=== PATIENT | male | born 1945 | race Caucasian/White ===

== ENCOUNTER 2022-10-28 19:47 | Inpatient (IN) ==
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
[2022-10-28 20:05] LABS: POC Calcium, Ionized 1.09 (1.16-1.32); POC Creatinine 1.2 (0.6-1.2); POC Potassium 3.6 (3.3-5.1)
[2022-10-28 20:47] LABS: Basophils # (Auto) 0.04 K/mcL (0.00-0.30); Basophils % (Auto) 0.3 % (0.0-2.0); Eosinophils # (Auto) 0.01 K/mcL (0.00-0.70); Eosinophils % (Auto) 0.1 % (0.0-7.0); Hematocrit 38.6 % (40.1-51.0); Hemoglobin 12.5 g/dL (13.7-17.5); Lymphocytes # (Auto) 0.85 K/mcL (1.50-4.80); Mean Cell Volume 84.3 fL (80.0-100.0); Mean Corpuscular HGB Conc 32.4 g/dL (31.0-36.0); Monocytes # (Auto) 0.77 K/mcL (0.10-0.90); Monocytes % (Auto) 6.4 % (1.0-12.0); Neutrophils % (Auto) 85.8 % (38.0-78.0); Platelet Count 220 K/mcL (140-440); RBC 4.58 M/mcL (4.63-6.08); Red Cell Distribution Width 13.7 % (11.5-14.5); WBC 12.1 K/mcL (4.5-11.0)
[2022-10-28] MEDS ORDERED: 0.9 % SODIUM CHLORIDE 1,000 ML IV ONE (21:08)
[2022-10-28] MEDS ORDERED: DILTIAZEM 25 MG/5 ML VIAL IV ONE (21:56)
[2022-10-28] MEDS ORDERED: cefTRIAXone 1 GM VIAL IV ONE (22:28)
[2022-10-28 22:42] LABS: Appearance,Urine CLOUDY (Clear); Bacteria,Urine MANY /hpf (0); Bilirubin,Urine NEGATIVE (Negative); Color,Urine YELLOW; Culture Indicated,Urine yes; Glucose,Urine (UA) 500 mg/dL (Negative); Ketones,Urine NEGATIVE (Negative); Leukocyte Esterase,Urine SMALL /uL (Negative); Mucus,Urine MANY /hpf; Nitrate,Urine Positive (Negative); PH,Urine 5.5 (5.0-9.0); Protein,Urine 100 mg/dL (Negative); Specific Gravity,Urine 1.025 (1.000-1.035); Urine Blood LARGE ery/mcL (Negative); Urine RBC > 182 /hpf (0-1); Urine Squamous Epithelial Cell 0 /hpf (0-4); Urine WBC > 182 /hpf (0-4); Urobilinogen,Urine Normal
[2022-10-28 22:54] LABS: POC INR 1.5 (0.8-1.2); POC Pro Time 17.9 (11.9-14.5)
[2022-10-28 23:35] LABS: Digoxin 0.5 ng/mL
[2022-10-29] MEDS ORDERED: 0.9 % SODIUM CHLORIDE 1,000 ML IV ONE (01:32)
[2022-10-29] MEDS: 0.9 % SODIUM CHLORIDE 1,000 ML IV SCH ×5 (02:13→14:26)
[2022-10-29] MEDS ORDERED: ACETAMINOPHEN 325 MG TABLET PO ONE ×2 (02:49→02:52)
[2022-10-29] MEDS ORDERED: traMADol 50 MG TABLET PO ONE ×2 (02:49→02:52)
--- NOTE | 2022-10-29 06:05 | Cat Scan Report ---
INDICATION: trauma. Fall COMPARISON: Previous examination dated 04/13/2022 TECHNIQUE: Axial noncontrast-enhanced images through the brain. Sagittally and coronally reformatted images. FINDINGS: Examination was initially interpreted by [facility] Cerebral hemispheres:Negative. No intra-axial abnormality. No intra-axial hematoma. No localized mass effect.This There is cerebral atrophy with ventricular enlargement. There is white matter abnormality consistent with small vessel ischemic change in this 77-year-old patient. Brainstem and cerebellum:No intra-axial abnormality Extra-axial:No acute hemorrhage. No subdural or epidural hematoma. No subarachnoid hemorrhage. Basilar cisterns are normal Calvarial:No calvarial fracture. No lytic lesion Temporal bones are negative. No destructive lesions Soft tissue, orbits, sinuses:Orbits and visualized facial soft tissues and paranasal sinuses are negative IMPRESSION: 1. Cerebral atrophy and white matter abnormality consistent with small vessel ischemic change 2. No acute abnormality. No intracranial hemorrhage The exam was performed using radiation dose optimization techniques including, but not limited to, automated exposure control, adjustment of the mA and/or kV according to patient size and use of iterative reconstruction technique. Interpreted and Authenticated by: Ramakrishna Degroot 10/29/22
--- NOTE | 2022-10-29 06:09 | Cat Scan Report ---
INDICATION: trauma. Fall COMPARISON: Previous examinations dated 02/29/2020, 04/13/2022 TECHNIQUE: Axial thin section images through the cervical spine. Sagittally and coronally reformatted images. The exam was performed using radiation dose optimization techniques including, but not limited to, automated exposure control, adjustment of the mA and/or kV according to patient size and use of iterative reconstruction technique. FINDINGS: Examination was initially interpreted by [facility] Vertebral bodies, spinous processes:No vertebral body or spinous process fracture. No acute abnormality. Alignment is anatomic without anterolisthesis Normal odontoid process. No fracture. Occipital condyles and C1 are negative. No atlantoaxial subluxation. Facets:No perched or locked facet. No facet complex fracture. Disc spaces:Moderate to severe degenerative disc narrowing at C5-6 Temporal bones:Negative. No basilar skull fracture Cervical soft tissues:Negative. No prevertebral soft tissue swelling. No focal soft tissue mass or acute abnormality Lung apices:No pneumothorax. No pulmonary contusion. IMPRESSION: 1. Degenerative disc disease 2. No cervical spine fracture. No acute posttraumatic abnormality Interpreted and Authenticated by: Ramakrishna Degroot 10/29/22
--- NOTE | 2022-10-29 06:55 | XRay Report ---
INDICATION: pain. Fall TECHNIQUE: AP pelvis COMPARISON: Previous examinations dated 04/13/2022, 12/24/2021 FINDINGS: No pelvic fracture. Superior and inferior pubic rami appear intact. Sacrum is negative. No detectable fracture. Sacroiliac joints unremarkable. Hips are negative and bilaterally symmetric. No hip fracture identified. IMPRESSION: Negative AP pelvis Interpreted and Authenticated by: Ramakrishna Degroot 10/29/22
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
[2022-10-29] MEDS ORDERED: traMADol 50 MG TABLET PO PRN (09:19)
[2022-10-29] MEDS ORDERED: IPRATROPIUM/ALBUTEROL 3 ML AMPUL.NEB NEB PRN (09:29)
[2022-10-29] MEDS ORDERED: DEXTROSE 31 GM ORAL.SUSP PO PRN (09:29)
[2022-10-29] MEDS ORDERED: ACETAMINOPHEN 325 MG TABLET PO PRN (09:29)
[2022-10-29] MEDS ORDERED: morphine 4 MG/ML VIAL IV PRN (09:29)
[2022-10-29] MEDS ORDERED: DEXTROSE 50% 50 ML VIAL IV PRN (09:29)
[2022-10-29] MEDS ORDERED: ONDANSETRON 4 MG/2 ML VIAL IV PRN (09:29)
[2022-10-29] MEDS ORDERED: cefTRIAXone 1 GM in DEXTROSE 5% IN WATER 50 ML IV SCH (09:29)
[2022-10-29] MEDS ORDERED: traZODone HCL 50 MG TABLET PO PRN (09:29)
[2022-10-29] MEDS: TAMSULOSIN 0.4 MG CAPSULE PO SCH (10:11)
[2022-10-29] MEDS: cefTRIAXone 1 GM VIAL IV SCH (10:49)
[2022-10-29] MEDS: INSULIN LISPRO 1 UNIT/0.01 ML UNIT SQ SCH ×3 (12:13→20:48)
[2022-10-29] MEDS: MIDODRINE 5 MG TABLET PO SCH ×2 (12:55→16:57)
[2022-10-29] MEDS: 0.9 % SODIUM CHLORIDE 10 ML SYRINGE IV SCH ×2 (13:42→22:26)
--- NOTE | 2022-10-29 13:52 | EKG ---
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
[2022-10-29] MEDS: DIGOXIN 125 MCG TABLET PO SCH (14:41)
[2022-10-29] MEDS: APIXABAN 5 MG TABLET PO SCH (20:22)
[2022-10-29] MEDS: DOCUSATE SODIUM 100 MG CAPSULE PO SCH (20:22)
[2022-10-29] MEDS: MAGNESIUM OXIDE 400 MG TABLET PO SCH (20:23)
[2022-10-29] MEDS: SENNOSIDES 1 TABLET PO SCH (20:23)
[2022-10-29] MEDS: METOPROLOL SUCCINATE 50 MG TAB.XL.24H PO SCH (20:23)
[2022-10-29] MEDS: INSULIN GLARGINE, HUMAN 1 UNIT/0.01 ML SQ SCH (20:25)
[2022-10-29] MEDS: NEO/POLYMYX B SULF/DEXAMETH 1 RIBBON OINT.OPHTH OU SCH (22:27)
[2022-10-30] MEDS: 0.9 % SODIUM CHLORIDE 1,000 ML IV SCH ×2 (00:16→08:09)
[2022-10-30] MEDS: 0.9 % SODIUM CHLORIDE 10 ML SYRINGE IV SCH ×3 (06:15→21:14)
[2022-10-30 06:47] LABS: Basophils # (Auto) 0.05 K/mcL (0.00-0.30); Basophils % (Auto) 0.7 % (0.0-2.0); Eosinophils # (Auto) 0.16 K/mcL (0.00-0.70); Eosinophils % (Auto) 2.2 % (0.0-7.0); Hematocrit 31.1 % (40.1-51.0); Lymphocytes # (Auto) 1.34 K/mcL (1.50-4.80); Lymphocytes % (Auto) 18.5 % (15.5-49.0); Mean Cell Volume 84.5 fL (80.0-100.0); Mean Corpuscular HGB Conc 32.2 g/dL (31.0-36.0); Mean Platelet Volume 11.2 fL (8.8-12.5); Monocytes # (Auto) 0.53 K/mcL (0.10-0.90); Monocytes % (Auto) 7.3 % (1.0-12.0); Neutrophils % (Auto) 70.9 % (38.0-78.0); Platelet Count 147 K/mcL (140-440); RBC 3.68 M/mcL (4.63-6.08); Red Cell Distribution Width 13.4 % (11.5-14.5); WBC 7.2 K/mcL (4.5-11.0)
[2022-10-30 07:14] LABS: Blood Urea Nitrogen 15 mg/dL (8-23); Calcium 8.4 mg/dL (8.6-10.4); Carbon Dioxide 24 mmol/L (22-30); Chloride 105 mmol/L (96-108); Glomerular Filtration Rate 81; Glucose 121 mg/dL (70-105)
[2022-10-30 07:21] LABS: ALT/SGPT 12 U/L (<40); AST/SGOT 18 U/L (<40); Alkaline Phosphatase 96 U/L (39-117); Bilirubin,Direct < 0.2 mg/dL (0-0.3); Bilirubin,Total 0.4 mg/dL (0.1-1.0); Globulin 2.9 gm/dL (2.2-3.7); Lactate Dehydrogenase 247 U/L (135-225); Phosphorous 1.7 mg/dL (2.5-4.5); Triglycerides 99 mg/dL (<150); Uric Acid 4.4 mg/dL (2.5-8.0)
[2022-10-30 07:44] LABS: Estimated Average Glucose(eAG) 169 mg/dL; Hemoglobin A1C 7.5 % Hgb (4.0-6.0)
[2022-10-30] MEDS: ASPIRIN 81 MG TAB.CHEW PO SCH (08:07)
[2022-10-30] MEDS: EZETIMIBE 10 MG TABLET PO SCH (08:07)
[2022-10-30] MEDS: MULTIVIT,THER IRON,CA,FA & MIN 1 TABLET PO SCH (08:07)
[2022-10-30] MEDS: DOCUSATE SODIUM 100 MG CAPSULE PO SCH ×2 (08:08→21:18)
[2022-10-30] MEDS: APIXABAN 5 MG TABLET PO SCH ×2 (08:08→21:13)
[2022-10-30] MEDS: INSULIN LISPRO 1 UNIT/0.01 ML UNIT SQ SCH ×4 (08:08→22:36)
[2022-10-30] MEDS: MAGNESIUM OXIDE 400 MG TABLET PO SCH ×2 (08:08→21:13)
[2022-10-30] MEDS: TAMSULOSIN 0.4 MG CAPSULE PO SCH (08:08)
[2022-10-30] MEDS: MIDODRINE 5 MG TABLET PO SCH ×3 (08:08→16:14)
[2022-10-30] MEDS: NEO/POLYMYX B SULF/DEXAMETH 1 RIBBON OINT.OPHTH OU SCH ×2 (08:09→21:13)
[2022-10-30] MEDS: BISACODYL 5 MG TABLET PO SCH (08:09)
[2022-10-30] MEDS: cefTRIAXone 1 GM VIAL IV SCH (08:12)
[2022-10-30] MEDS: GEMFIBROZIL 600 MG TABLET PO SCH (08:26)
[2022-10-30] MEDS ORDERED: NIACIN 1000 MG PO SCH (09:00)
--- NOTE | 2022-10-30 09:07 | Internal Med Progress Note ---
SUBJECTIVE Subjective Patient information: Note initiated : 10/30/22 at 9:04 am Service Date, if different from initiated Date: [] Patient: Ramakrishna Burgos a 77 y/o M admitted on 10/29/22 for weakness, fall. Chief Complaint: [] Interval history: Mr. Burgos is a 77 year old M history of CAD status post CABG x3, BPH status post TURP, type 2 diabetes mellitus, essential hypertensions, mixed dyslipidemia, proximal atrial fibrillation's, presenting with general weakness. He stated that he has been feeling weak since his CABG 2 years ago but it has been progressively worsened especially over the past week. Yesterday he is partner fell and unable to continue to take care of him so he decided to come to the ED for evaluation and for treatment and potential placement needs. He denies any fever or chills or diaphoresis. He denies any dysuria or change in urinary frequency or urgency. No GI upset such as nausea vomiting. Vital signs in the presentation significant for elevated heart rate tachycardia heart rate up to the 1 teens beats per minute atrial fibrillation's. Labs significant for leukocytosis WBC 12.1. Lactic acid 1.2. Urine analysis suggesting the presence of urinary infections. CT and x-ray did not reveal any bony fractures or joint dislocations. Admission request discomfort urinary tract infections with associated clinical sepsis. 2: Fever Tmax 38.2 overnight. Blood culture: Gram positive cocci; Urine culture: E coli. WBC 12.1-->7.2. Patient denies any subjective fever chills or diaphoresis. He is coming of headache and pelvic pain secondary to his recent falls. He has poor appetite. He has increasing body strength. Continue IV fluid and Rocephin for urinary tract infections. Since the blood culture is growing completely different bacteria than the urine culture, it is likely contamination's. We will continue to monitor. Pending physical therapy evaluation and treatment for placement planning. Constitutional Vitals: Vital Signs Temp Pulse Resp BP Pulse Ox O2 Del Method O2 Flow Rate 36.9 C 65 20 144/68 96 Room Air 3 10/30/22 08:00 10/30/22 08:00 10/30/22 08:00 10/30/22 08:00 10/30/22 08:00 10/30/22 00:02 10/29/22 08:01 Period Temp Pulse Resp BP Sys/Davis Pulse Ox O2 Del Method O2 Flow Rate Last 24 Hr 36.9 C-38.2 C 64-90 18-29 119-144/50-83 89-96 Room Air-Room Air Intake and Output 10/29/22 10/30/22 10/30/22 19:59 03:59 11:59 Intake Total 2119 651 3538 Output Total 400 275 290 Balance 4684 777 4169 Weight 91.399 kg Intake & Output: Intake & Output 10/29/22 10/30/22 10/30/22 19:59 03:59 11:59 Intake Total 6884 053 0650 Output Total 400 275 290 Balance 3011 073 3284 Weight 91.399 kg Intake: IV 538 983 788 Sodium Chloride 0.9% 1,000 ml @ 538 983 788 100 mls/hr IV .Q10H [facility] Rx#: [id number] Oral 1000 800 Output: Urine Catheter Amount 400 275 290 Other: Meal Dinner Percent of Meal Consumed 25% Urine Appearance Clear Sediment Cloudy Uretheral (Bethea) Cloudy Urine Color Dark Yellow Light Patria Dark Yellow Uretheral ([place]ethea) Yellow Urine Odor Normal Strong Uretheral (Bethea) Normal Head Head exam: Present atraumatic and normal inspection Eye Eye exam: Present normal appearance ENT ENT exam: Present mucous membranes moist, normal exam and normal external ear exam Neck Neck exam: Present normal inspection Respiratory Respiratory exam: Present normal respiratory exam Cardiovascular Cardiovascular exam: Present normal rate and rhythm GI/Abdominal GI/Abdominal exam: Present normal bowel sounds Back Exam Back exam: Present normal inspection Neurological Exam Neurological exam: Present alert and oriented X3 Skin Skin exam: Present intact and warm OBJ DATA Labs 10/30/22 05:22 10/30/22 05:22 Labs: Abnormal Lab Results 10/30/22 10/30/22 10/29/22 05:22 05:22 09:50 WBC RBC 3.68 L Hgb 10.0 L Hct 31.1 L POC Hct Neut % (Auto) Lymph % (Auto) Lymph # (Auto) 1.34 L Absolute Neutrophils POC PT POC INR D-Dimer POC VBG pO2 POC VBG HCO3 POC VBG Total CO2 POC Venous O2 Sat POC VBG Base Excess POC BUN Glucose 121 H POC Glucose Hemoglobin A1c 7.5 H Calcium 8.4 L POC WB Ioniz Calcium Phosphorus 1.7 L Lactate Dehydrogenase 247 H Albumin 3.0 L Procalcitonin 0.31 H Urine Appearance Urine Protein Urine Glucose (UA) Urine Occult Blood Urine Nitrate Ur Leukocyte Esterase Urine RBC Urine WBC Urine Bacteria Urine Mucus 10/28/22 10/28/22 10/28/22 22:50 21:47 20:11 WBC 12.1 H RBC 4.58 L Hgb 12.5 L Hct 38.6 L POC Hct Neut % (Auto) 85.8 H Lymph % (Auto) 7.0 L Lymph # (Auto) 0.85 L Absolute Neutrophils 10.39 H POC PT 17.9 H POC INR 1.5 H D-Dimer POC VBG pO2 POC VBG HCO3 POC VBG Total CO2 POC Venous O2 Sat POC VBG Base Excess POC BUN Glucose POC Glucose Hemoglobin A1c Calcium POC WB Ioniz Calcium Phosphorus Lactate Dehydrogenase Albumin Procalcitonin Urine Appearance Cloudy A Urine Protein 100 A Urine Glucose (UA) 500 A Urine Occult Blood Large A Urine Nitrate Positive A Ur Leukocyte Esterase Small A Urine RBC > 182 H Urine WBC > 182 H Urine Bacteria Many A Urine Mucus Many A 10/28/22 10/28/22 10/28/22 20:01 19:58 19:56 WBC RBC Hgb Hct POC Hct 38.0 L Neut % (Auto) Lymph % (Auto) Lymph # (Auto) Absolute Neutrophils POC PT POC INR D-Dimer 0.65 H POC VBG pO2 22 L POC VBG HCO3 29.0 H POC VBG Total CO2 30.0 H POC Venous O2 Sat 37.0 L POC VBG Base Excess 4.0 H* POC BUN 21 H Glucose POC Glucose 244 H Hemoglobin A1c Calcium POC WB Ioniz Calcium 1.09 L Phosphorus Lactate Dehydrogenase Albumin Procalcitonin Urine Appearance Urine Protein Urine Glucose (UA) Urine Occult Blood Urine Nitrate Ur Leukocyte Esterase Urine RBC Urine WBC Urine Bacteria Urine Mucus Meds: Medications Acetaminophen (Acetaminophen 325 Mg Tablet) 650 mg PO Q6HP PRN; Protocol PRN Reason: Per Pain Protocol/Fever > 101 Last Admin: 10/29/22 11:52 Dose: 650 mg Albuterol/Ipratropium (Ipratropium/Albuterol 3 Ml Ampul.Neb) 3 ml NEB Q4HRT PRN PRN Reason: Wheezing Apixaban (Apixaban 5 Mg Tablet) 5 mg PO BID [facility] Last Admin: 02/02/23 08:08 Dose: 5 mg Aspirin (Aspirin 81 Mg Tab.Chew) 81 mg PO DAILY [facility] Last Admin: 10/30/22 08:07 Dose: 81 mg Bisacodyl (Bisacodyl 5 Mg Tablet) 5 mg PO DAILY [facility] Last Admin: 10/30/22 08:09 Dose: Not Given Ceftriaxone Sodium (Ceftriaxone 1 Gm Vial) 1 gm IV Q24H [facility] Last Admin: 10/30/22 08:12 Dose: 1 gm Dextrose (Dextrose 50% 50 Ml Vial) 0 ml IV UD PRN PRN Reason: Per Sliding Scale Diagnostic Test (Pha) (Accu-Chek 1 Each Strip) 1 each FS ACHS [facility] Last Admin: 10/30/22 08:08 Dose: 1 each Digoxin (Digoxin 125 Mcg Tablet) 125 mcg PO DAILY@1400 [facility] Last Admin: 10/29/22 14:41 Dose: 125 mcg Docusate Sodium (Docusate Sodium 100 Mg Capsule) 100 mg PO BID [facility] Last Admin: 10/30/22 08:08 Dose: 100 mg Ezetimibe (Ezetimibe 10 Mg Tablet) 10 mg PO DAILY [facility] Last Admin: 10/30/22 08:07 Dose: 10 mg Gemfibrozil (Gemfibrozil 600 Mg Tablet) 600 mg PO QAMAC [facility] Last Admin: 10/30/22 08:26 Dose: 600 mg Glucose (Dextrose 31 Gm Oral.Susp) 15 gm PO PRN PRN PRN Reason: Hypoglycemia Sodium Chloride (Sodium Chloride 0.9%) 1,000 mls @ 100 mls/hr IV .Q10H [facility] Last Admin: 10/30/22 08:09 Dose: 100 mls/hr Insulin Glargine (Insulin Glargine, Human 1 Unit/0.01 Ml) 5 unit SQ [facility] Last Admin: 10/29/22 20:25 Dose: 5 units Insulin Human Lispro (Insulin Lispro 1 Unit/0.01 Ml Unit) 0 unit SQ [facility]; Protocol Last Admin: 10/30/22 08:08 Dose: Not Given Iron Carb/Multivit/[place]/Folic Acid (Multivit,Ther Iron,Ca,Fa & Min 1 Tablet) 1 tab PO DAILY [facility] Last Admin: 10/30/22 08:07 Dose: 1 tab Magnesium Oxide (Magnesium Oxide 400 Mg Tablet) 400 mg PO BID [facility] Last Admin: 10/30/22 08:08 Dose: 400 mg Metoprolol Succinate (Metoprolol Succinate 50 Mg Tab.Xl.24h) 25 mg PO HS [facility] Last Admin: 10/29/22 20:23 Dose: 25 mg Midodrine (Midodrine 5 Mg Tablet) 10 mg PO TID@0800,1200,1700 [facility] Last Admin: 10/30/22 08:08 Dose: Not Given Morphine Sulfate (Morphine 4 Mg/Ml Vial) 2 mg IV Q4HP PRN; Protocol PRN Reason: Per Pain Protocol Neomycin/Polymyxin/Dexamethasone (Jonah/Polymyx B Sulf/Dexameth 1 Ribbon Oint.Ophth) 1 ribbon OU BID [facility] Last Admin: 10/30/22 08:09 Dose: Not Given Ondansetron HCl (Ondansetron 4 Mg/2 Ml Vial) 4 mg IV Q6HP PRN PRN Reason: Nausea And Vomiting Senna (Sennosides 1 Tablet) 2 tab PO HS [facility] Last Admin: 10/29/22 20:23 Dose: 2 tab Sodium Chloride (0.9 % Sodium Chloride 10 Ml Syringe) 10 ml IV Q8 [facility] Last Admin: 10/30/22 06:15 Dose: Not Given Tamsulosin HCl (Tamsulosin 0.4 Mg Capsule) 0.4 mg PO DAILY [facility] Last Admin: 10/30/22 08:08 Dose: 0.4 mg Tramadol HCl (Tramadol 50 Mg Tablet) 50 mg PO TIDP PRN PRN Reason: Pain Trazodone HCl (Trazodone Hcl 50 Mg Tablet) 25 mg PO HSP PRN PRN Reason: Insomnia A/P Assessment and plan (1) UTI (urinary tract infection): Status: Chronic (2) Type 2 diabetes mellitus: Status: Chronic (3) Hypertension: Status: Chronic (4) Atherosclerotic heart disease of [place] coronary artery with other forms of angina pectoris: Status: Chronic (5) Paroxysmal atrial fibrillation: Status: Chronic (6) Benign prostatic hyperplasia with urinary obstruction: Status: Chronic (7) Anemia, normocytic normochromic: Status: Acute (8) Sepsis: Status: Acute Narrative A/P Narrative: Assessment and Plans: 1. UTI with clinical sepsis: Inpatient med surg telemetry Serial lactic acid 1.2 Procalcitonin level 0.31 Blood culture, gram positive cocci Urine culture, E coli cbc w/ auto diff in the morning to trend WBC NS@100cc/hr Rocephin Physical therapy evaluation and treatment 2. Paroxysmal atrial fibrillation: Currently NSR Digoxin Toprol XL Eliquis 3. h/o CAD s/p CABGX3: Aspirin Toprol XL Ezetimibe Gemfibrozil 4. h/o essential HTN: Midodrine to make room in blood pressure in order for patient to tolerate Toprol XL for paroxysmal atrial fibrillation 5. T2DM: HgA1c 7.5 Hold oral hypoglycemics Lantus 5 unit HS Insulin Lispro SSI AC HS Accu Check AC HS Hypoglycemia protocol Diabetic diet 6. Anemia, normocytic normochromic: cbc w/ auto diff in the morning to trend H/H 7. BPH s/p TURP: Flomax 8. Gram positive cocci bacteremia: DDx: skin contamination Repeat blood culture 2/3 cbc w/ auto diff in the morning to trend Currently on Rocephin GI ppx: not currently indicated DVT ppx: Eliquis Code status: Full Prognosis: Stable Disposition: inpatient med surg tele; PT Time Spent With Patient Time: Total time spent is greater than 50% in coordination of care (as documented) at patient's floor/unit and/or counseling patient: Subsequent: Total time with patient: 35 - 49 minutes QUALITY VTE Deep Vein Thrombosis/Pulmonary Embolism Present on Admission: No
--- NOTE | 2022-10-30 14:08 | Internal Med Progress Note ---
SUBJECTIVE Subjective Patient information: Note initiated : 10/30/22 at 2:04 pm Service Date, if different from initiated Date: [] Patient: Ramakrishna Burgos a 77 y/o M admitted on 10/29/22 for weakness, fall. Chief Complaint: [] Interval history: Mr. Burgos is a 77 year old M history of CAD status post CABG x3, BPH status post TURP, type 2 diabetes mellitus, essential hypertensions, mixed dyslipidemia, proximal atrial fibrillation's, presenting with general weakness. He stated that he has been feeling weak since his CABG 2 years ago but it has been progressively worsened especially over the past week. Yesterday he is partner fell and unable to continue to take care of him so he decided to come to the ED for evaluation and for treatment and potential placement needs. He denies any fever or chills or diaphoresis. He denies any dysuria or change in urinary frequency or urgency. No GI upset such as nausea vomiting. Vital signs in the presentation significant for elevated heart rate tachycardia heart rate up to the 1 teens beats per minute atrial fibrillation's. Labs significant for leukocytosis WBC 12.1. Lactic acid 1.2. Urine analysis suggesting the presence of urinary infections. CT and x-ray did not reveal any bony fractures or joint dislocations. Admission request discomfort urinary tract infections with associated clinical sepsis. 2: Fever Tmax 38.2 overnight. Blood culture: Gram positive cocci; Urine culture: E coli. WBC 12.1-->7.2. Patient denies any subjective fever chills or diaphoresis. He is coming of headache and pelvic pain secondary to his recent falls. He has poor appetite. He has increasing body strength. Continue IV fluid and Rocephin for urinary tract infections. Since the blood culture is growing completely different bacteria than the urine culture, it is likely contamination's. We will continue to monitor. Pending physical therapy evaluation and treatment for placement planning. Constitutional Vitals: Vital Signs Temp Pulse Resp BP Pulse Ox O2 Del Method O2 Flow Rate 98.6 F 84 14 138/61 96 Room Air 97 10/30/22 11:28 10/30/22 11:28 10/30/22 11:28 10/30/22 11:28 10/30/22 08:00 10/30/22 11:28 10/30/22 11:28 Period Temp Pulse Resp BP Sys/Davis Pulse Ox O2 Del Method O2 Flow Rate Last 24 Hr 98.5 F-100.8 F 64-84 14-29 119-144/50-83 89-96 Room Air-Room Air 97 Intake and Output 10/30/22 10/30/22 10/30/22 03:59 11:59 19:59 Intake Total 983 1588 Output Total 275 290 Balance 708 1298 Weight 91.399 kg Intake & Output: Intake & Output 10/30/22 10/30/22 10/30/22 03:59 11:59 19:59 Intake Total 983 1588 Output Total 275 290 Balance 708 1298 Weight 91.399 kg Intake: IV 983 788 Sodium Chloride 0.9% 1,000 ml @ 983 788 100 mls/hr IV .Q10H [facility] Rx#: [id number] Oral 800 Output: Urine Catheter Amount 275 290 Other: Urine Appearance Sediment Cloudy Uretheral (Bethea) Cloudy Clear Urine Color Light Patria Dark Yellow Uretheral (Bethea) Yellow Yellow Urine Odor Strong Uretheral (Bethea) Normal Normal Exam: General: Alert, Awake, No acute Distress Eyes/N/T: EOMI, Head/Neck: neck supple, CV: RRR, No murmurs, Pulm: Clear b/l, no wheezing/rhonchi/rales Abd: soft, nontender, +BS x4 Ext: no clubbing/cyanosis/edema Neuro: Alert, no focal deficits, moves all extremities, Skin: warm/dry OBJ DATA Labs 10/30/22 05:22 10/30/22 05:22 Labs: Abnormal Lab Results 10/30/22 10/30/22 10/29/22 05:22 05:22 09:50 WBC RBC 3.68 L Hgb 10.0 L Hct 31.1 L POC Hct Neut % (Auto) Lymph % (Auto) Lymph # (Auto) 1.34 L Absolute Neutrophils POC PT POC INR D-Dimer POC VBG pO2 POC VBG HCO3 POC VBG Total CO2 POC Venous O2 Sat POC VBG Base Excess POC BUN Glucose 121 H POC Glucose Hemoglobin A1c 7.5 H Calcium 8.4 L POC WB Ioniz Calcium Phosphorus 1.7 L Lactate Dehydrogenase 247 H Albumin 3.0 L Procalcitonin 0.31 H Urine Appearance Urine Protein Urine Glucose (UA) Urine Occult Blood Urine Nitrate Ur Leukocyte Esterase Urine RBC Urine WBC Urine Bacteria Urine Mucus 10/28/22 10/28/22 10/28/22 22:50 21:47 20:11 WBC 12.1 H RBC 4.58 L Hgb 12.5 L Hct 38.6 L POC Hct Neut % (Auto) 85.8 H Lymph % (Auto) 7.0 L Lymph # (Auto) 0.85 L Absolute Neutrophils 10.39 H POC PT 17.9 H POC INR 1.5 H D-Dimer POC VBG pO2 POC VBG HCO3 POC VBG Total CO2 POC Venous O2 Sat POC VBG Base Excess POC BUN Glucose POC Glucose Hemoglobin A1c Calcium POC WB Ioniz Calcium Phosphorus Lactate Dehydrogenase Albumin Procalcitonin Urine Appearance Cloudy A Urine Protein 100 A Urine Glucose (UA) 500 A Urine Occult Blood Large A Urine Nitrate Positive A Ur Leukocyte Esterase Small A Urine RBC > 182 H Urine WBC > 182 H Urine Bacteria Many A Urine Mucus Many A 10/28/22 10/28/22 10/28/22 20:01 19:58 19:56 WBC RBC Hgb Hct POC Hct 38.0 L Neut % (Auto) Lymph % (Auto) Lymph # (Auto) Absolute Neutrophils POC PT POC INR D-Dimer 0.65 H POC VBG pO2 22 L POC VBG HCO3 29.0 H POC VBG Total CO2 30.0 H POC Venous O2 Sat 37.0 L POC VBG Base Excess 4.0 H* POC BUN 21 H Glucose POC Glucose 244 H Hemoglobin A1c Calcium POC WB Ioniz Calcium 1.09 L Phosphorus Lactate Dehydrogenase Albumin Procalcitonin Urine Appearance Urine Protein Urine Glucose (UA) Urine Occult Blood Urine Nitrate Ur Leukocyte Esterase Urine RBC Urine WBC Urine Bacteria Urine Mucus Meds: Medications Acetaminophen (Acetaminophen 325 Mg Tablet) 650 mg PO Q6HP PRN; Protocol PRN Reason: Per Pain Protocol/Fever > 101 Last Admin: 10/29/22 11:52 Dose: 650 mg Albuterol/Ipratropium (Ipratropium/Albuterol 3 Ml Ampul.Neb) 3 ml NEB Q4HRT PRN PRN Reason: Wheezing Apixaban (Apixaban 5 Mg Tablet) 5 mg PO BID [facility] Last Admin: 10/30/22 08:08 Dose: 5 mg Aspirin (Aspirin 81 Mg Tab.Chew) 81 mg PO DAILY [facility] Last Admin: 10/30/22 08:07 Dose: 81 mg Bisacodyl (Bisacodyl 5 Mg Tablet) 5 mg PO DAILY [facility] Last Admin: 10/30/22 08:09 Dose: Not Given Ceftriaxone Sodium (Ceftriaxone 1 Gm Vial) 1 gm IV Q24H [facility] Last Admin: 10/30/22 08:12 Dose: 1 gm Dextrose (Dextrose 50% 50 Ml Vial) 0 ml IV UD PRN PRN Reason: Per Sliding Scale Diagnostic Test (Pha) (Accu-Chek 1 Each Strip) 1 each FS [facility] Last Admin: 10/30/22 12:25 Dose: 1 each Digoxin (Digoxin 125 Mcg Tablet) 125 mcg PO DAILY@1400 [facility] Last Admin: 10/29/22 14:41 Dose: 125 mcg Docusate Sodium (Docusate Sodium 100 Mg Capsule) 100 mg PO BID [facility] Last Admin: 10/30/22 08:08 Dose: 100 mg Ezetimibe (Ezetimibe 10 Mg Tablet) 10 mg PO DAILY [facility] Last Admin: 10/30/22 08:07 Dose: 10 mg Gemfibrozil (Gemfibrozil 600 Mg Tablet) 600 mg PO QAMAC [facility] Last Admin: 10/30/22 08:26 Dose: 600 mg Glucose (Dextrose 31 Gm Oral.Susp) 15 gm PO PRN PRN PRN Reason: Hypoglycemia Sodium Chloride (Sodium Chloride 0.9%) 1,000 mls @ 100 mls/hr IV .Q10H [facility] Last Admin: 10/30/22 08:09 Dose: 100 mls/hr Insulin Glargine (Insulin Glargine, Human 1 Unit/0.01 Ml) 5 unit SQ [facility] Last Admin: 10/29/22 20:25 Dose: 5 units Insulin Human Lispro (Insulin Lispro 1 Unit/0.01 Ml Unit) 0 unit SQ [facility]; Protocol Last Admin: 10/30/22 12:25 Dose: 4 units Iron Carb/Multivit/[place]/Folic Acid (Multivit,Ther Iron,Ca,Fa & Min 1 Tablet) 1 tab PO DAILY [facility] Last Admin: 10/30/22 08:07 Dose: 1 tab Magnesium Oxide (Magnesium Oxide 400 Mg Tablet) 400 mg PO BID [facility] Last Admin: 10/30/22 08:08 Dose: 400 mg Metoprolol Succinate (Metoprolol Succinate 50 Mg Tab.Xl.24h) 25 mg PO [facility] Last Admin: 10/29/22 20:23 Dose: 25 mg Midodrine (Midodrine 5 Mg Tablet) 10 mg PO TID@0800,1200,1700 [facility] Last Admin: 10/30/22 12:20 Dose: Not Given Morphine Sulfate (Morphine 4 Mg/Ml Vial) 2 mg IV Q4HP PRN; Protocol PRN Reason: Per Pain Protocol Neomycin/Polymyxin/Dexamethasone (Jonah/Polymyx B Sulf/Dexameth 1 Ribbon Oint.Ophth) 1 ribbon OU BID [facility] Last Admin: 10/30/22 08:09 Dose: Not Given Ondansetron HCl (Ondansetron 4 Mg/2 Ml Vial) 4 mg IV Q6HP PRN PRN Reason: Nausea And Vomiting Senna (Sennosides 1 Tablet) 2 tab PO [facility] Last Admin: 10/29/22 20:23 Dose: 2 tab Sodium Chloride (0.9 % Sodium Chloride 10 Ml Syringe) 10 ml IV Q8 [facility] Last Admin: 10/30/22 12:25 Dose: Not Given Tamsulosin HCl (Tamsulosin 0.4 Mg Capsule) 0.4 mg PO DAILY [facility] Last Admin: 10/30/22 08:08 Dose: 0.4 mg Tramadol HCl (Tramadol 50 Mg Tablet) 50 mg PO TIDP PRN PRN Reason: Pain Trazodone HCl (Trazodone Hcl 50 Mg Tablet) 25 mg PO HSP PRN PRN Reason: Insomnia A/P Narrative A/P Narrative: Assessment and Plans: *UTI(E.coli/Klebsiella) w/Sepsis: -Procalcitonin level 0.31 -cbc w/ auto diff in the morning to trend WBC -Rocephin *Bacteremia(GPC 2/4 bottles): -Repeat blood culture -cbc w/ auto diff in the morning to trend *Paroxysmal atrial fibrillation: Currently NSR -cont home Digoxin ,Toprol XL ,Eliquis *h/o CAD s/p CABGX3: -cont home Aspirin , Toprol XL , Ezetimibe/Gemfibrozil *T2DM: -HgA1c 7.5 -Hold oral hypoglycemics, Lantus 5 unit HS, SSI -Hypoglycemia protocol, Diabetic diet *Anemia, normocytic normochromic: -cbc w/ auto diff in the morning to trend H/H *BPH s/p TURP: Flomax *Hypophosphatemia: Replace as needed trend *Generalized weakness/deconditioning:Physical therapy evaluation and treatment *ppx: Eliquis Code status: Atm Mechanic Spent With Patient Time: Total time spent is greater than 50% in coordination of care (as documented) at patient's floor/unit and/or counseling patient: QUALITY VTE Deep Vein Thrombosis/Pulmonary Embolism Present on Admission: No
[2022-10-30] MEDS ORDERED: NEUTRA PHOS 1 PACKET PO ONE (14:12)
[2022-10-30] MEDS ORDERED: PHOSPHORUS 250 MG TABLET PO ONE (14:12)
[2022-10-30] MEDS: DIGOXIN 125 MCG TABLET PO SCH (14:13)
[2022-10-30] MEDS: SENNOSIDES 1 TABLET PO SCH (21:13)
[2022-10-30] MEDS: METOPROLOL SUCCINATE 50 MG TAB.XL.24H PO SCH (21:17)
[2022-10-30] MEDS: INSULIN GLARGINE, HUMAN 1 UNIT/0.01 ML SQ SCH (22:38)
[2022-10-31] MEDS: 0.9 % SODIUM CHLORIDE 10 ML SYRINGE IV SCH ×3 (04:28→22:46)
[2022-10-31] MEDS: GEMFIBROZIL 600 MG TABLET PO SCH (07:20)
[2022-10-31] MEDS: INSULIN LISPRO 1 UNIT/0.01 ML UNIT SQ SCH ×4 (07:44→22:44)
[2022-10-31] MEDS: MIDODRINE 5 MG TABLET PO SCH ×3 (07:48→16:54)
--- NOTE | 2022-10-31 08:21 | Internal Med Progress Note ---
SUBJECTIVE Subjective Patient information: Note initiated : 10/31/22 at 8:19 am Service Date, if different from initiated Date: [] Patient: Ramakrishna Burgos a 77 y/o M admitted on 10/29/22 for weakness, fall. Chief Complaint: [] Interval history: Mr. Burgos is a 77 year old M history of CAD status post CABG x3, BPH status post TURP, type 2 diabetes mellitus, essential hypertensions, mixed dyslipidemia, proximal atrial fibrillation's, presenting with general weakness. He stated that he has been feeling weak since his CABG 2 years ago but it has been progressively worsened especially over the past week. Yesterday he is partner fell and unable to continue to take care of him so he decided to come to the ED for evaluation and for treatment and potential placement needs. He denies any fever or chills or diaphoresis. He denies any dysuria or change in urinary frequency or urgency. No GI upset such as nausea vomiting. Vital signs in the presentation significant for elevated heart rate tachycardia heart rate up to the 1 teens beats per minute atrial fibrillation's. Labs significant for leukocytosis WBC 12.1. Lactic acid 1.2. Urine analysis suggesting the presence of urinary infections. CT and x-ray did not reveal any bony fractures or joint dislocations. Admission request discomfort urinary tract infections with associated clinical sepsis. 2/2: Fever Tmax 38.2 overnight. Blood culture: Gram positive cocci; Urine culture: E coli. WBC 12.1-->7.2. Patient denies any subjective fever chills or diaphoresis. He is coming of headache and pelvic pain secondary to his recent falls. He has poor appetite. He has increasing body strength. Continue IV fluid and Rocephin for urinary tract infections. Since the blood culture is growing completely different bacteria than the urine culture, it is likely contamination's. We will continue to monitor. Pending physical therapy evaluation and treatment for placement planning. 2/3 Afebrile. Leukocytosis resolved. Hypophosphatemia. Replace and trend. Procalcitonin improving. Patient feels constipated. Review of Systems: denies headache/fever/chills/nausea/vomiting/chest or abdominal pain/cough/dyspnea/diarrhea. Otherwise see above. Constitutional Vitals: Vital Signs Temp Pulse Resp BP Pulse Ox O2 Del Method O2 Flow Rate 98.7 F 76 16 153/60 94 Room Air 97 10/31/22 07:48 10/31/22 07:48 10/31/22 07:48 10/31/22 07:48 10/31/22 07:48 10/31/22 07:48 10/30/22 11:28 Period Temp Pulse Resp BP Sys/Davis Pulse Ox O2 Del Method O2 Flow Rate Last 24 Hr 97.2 F-99.5 F 64-84 14-20 138-155/57-74 92-99 Room Air-Room r 97 Intake and Output 10/30/22 10/31/22 10/31/22 19:59 03:59 11:59 Intake Total 420 1480 Output Total 750 1500 Balance -330 -20 Weight 91.399 kg 91.399 kg Intake & Output: Intake & Output 10/30/22 10/31/22 10/31/22 19:59 03:59 11:59 Intake Total 420 1480 Output Total 750 1500 Balance -330 -20 Weight 91.399 kg 91.399 kg Intake: IV 1000 Sodium Chloride 0.9% 1,000 ml @ 1000 100 mls/hr IV .Q10H [facility] Rx#: [id number] Oral 420 480 Output: Urine Catheter Amount 1500 Void Amount 750 Other: Meal Lunch snack Percent of Meal Consumed 75% 50 Feeding Ability Independent Independent Urine Appearance Clear Sediment Sediment Uretheral (Bethea) Sediment Sediment Urine Color Yellow Pale Uretheral (Bethea) Yellow Urine Odor Normal Normal Uretheral (Bethea) Normal Exam: General: Alert, Awake, No acute Distress Eyes/N/T: EOMI, Head/Neck: neck supple, CV: RRR, No murmurs, Pulm: Clear b/l, no wheezing/rhonchi/rales Abd: soft, nontender, +BS x4 Ext: no clubbing/cyanosis/edema Neuro: Alert, no focal deficits, moves all extremities, Skin: warm/dry OBJ DATA Labs 10/30/22 05:22 10/30/22 05:22 Labs: Abnormal Lab Results 10/30/22 10/30/22 10/29/22 05:22 05:22 09:50 WBC RBC 3.68 L Hgb 10.0 L Hct 31.1 L POC Hct Neut % (Auto) Lymph % (Auto) Lymph # (Auto) 1.34 L Absolute Neutrophils POC PT POC INR D-Dimer POC VBG pO2 POC VBG HCO3 POC VBG Total CO2 POC Venous O2 Sat POC VBG Base Excess POC BUN Glucose 121 H POC Glucose Hemoglobin A1c 7.5 H Calcium 8.4 L POC WB Ioniz Calcium Phosphorus 1.7 L Lactate Dehydrogenase 247 H Albumin 3.0 L Procalcitonin 0.31 H Urine Appearance Urine Protein Urine Glucose (UA) Urine Occult Blood Urine Nitrate Ur Leukocyte Esterase Urine RBC Urine WBC Urine Bacteria Urine Mucus 10/28/22 10/28/22 10/28/22 22:50 21:47 20:11 WBC 12.1 H RBC 4.58 L Hgb 12.5 L Hct 38.6 L POC Hct Neut % (Auto) 85.8 H Lymph % (Auto) 7.0 L Lymph # (Auto) 0.85 L Absolute Neutrophils 10.39 H POC PT 17.9 H POC INR 1.5 H D-Dimer POC VBG pO2 POC VBG HCO3 POC VBG Total CO2 POC Venous O2 Sat POC VBG Base Excess POC BUN Glucose POC Glucose Hemoglobin A1c Calcium POC WB Ioniz Calcium Phosphorus Lactate Dehydrogenase Albumin Procalcitonin Urine Appearance Cloudy A Urine Protein 100 A Urine Glucose (UA) 500 A Urine Occult Blood Large A Urine Nitrate Positive A Ur Leukocyte Esterase Small A Urine RBC > 182 H Urine WBC > 182 H Urine Bacteria Many A Urine Mucus Many A 10/28/22 10/28/22 10/28/22 20:01 19:58 19:56 WBC RBC Hgb Hct POC Hct 38.0 L Neut % (Auto) Lymph % (Auto) Lymph # (Auto) Absolute Neutrophils POC PT POC INR D-Dimer 0.65 H POC VBG pO2 22 L POC VBG HCO3 29.0 H POC VBG Total CO2 30.0 H POC Venous O2 Sat 37.0 L POC VBG Base Excess 4.0 H* POC BUN 21 H Glucose POC Glucose 244 H Hemoglobin A1c Calcium POC WB Ioniz Calcium 1.09 L Phosphorus Lactate Dehydrogenase Albumin Procalcitonin Urine Appearance Urine Protein Urine Glucose (UA) Urine Occult Blood Urine Nitrate Ur Leukocyte Esterase Urine RBC Urine WBC Urine Bacteria Urine Mucus Meds: Medications Acetaminophen (Acetaminophen 325 Mg Tablet) 650 mg PO Q6HP PRN; Protocol PRN Reason: Per Pain Protocol/Fever > 101 Last Admin: 10/29/22 11:52 Dose: 650 mg Albuterol/Ipratropium (Ipratropium/Albuterol 3 Ml Ampul.Neb) 3 ml NEB Q4HRT PRN PRN Reason: Wheezing Apixaban (Apixaban 5 Mg Tablet) 5 mg PO BID [facility] Last Admin: 10/30/22 21:13 Dose: 5 mg Aspirin (Aspirin 81 Mg Tab.Chew) 81 mg PO DAILY [facility] Last Admin: 10/30/22 08:07 Dose: 81 mg Bisacodyl (Bisacodyl 5 Mg Tablet) 5 mg PO DAILY [facility] Last Admin: 10/30/22 08:09 Dose: Not Given Ceftriaxone Sodium (Ceftriaxone 1 Gm Vial) 1 gm IV Q24H [facility] Last Admin: 10/30/22 08:12 Dose: 1 gm Dextrose (Dextrose 50% 50 Ml Vial) 0 ml IV UD PRN PRN Reason: Per Sliding Scale Diagnostic Test (Pha) (Accu-Chek 1 Each Strip) 1 each FS [facility] Last Admin: 10/31/22 07:21 Dose: 1 each Digoxin (Digoxin 125 Mcg Tablet) 125 mcg PO DAILY@1400 [facility] Last Admin: 10/30/22 14:13 Dose: 125 mcg Docusate Sodium (Docusate Sodium 100 Mg Capsule) 100 mg PO BID [facility] Last Admin: 10/30/22 21:18 Dose: 100 mg Ezetimibe (Ezetimibe 10 Mg Tablet) 10 mg PO DAILY [facility] Last Admin: 10/30/22 08:07 Dose: 10 mg Gemfibrozil (Gemfibrozil 600 Mg Tablet) 600 mg PO QAMAC [facility] Last Admin: 10/31/22 07:20 Dose: 600 mg Glucose (Dextrose 31 Gm Oral.Susp) 15 gm PO PRN PRN PRN Reason: Hypoglycemia Insulin Glargine (Insulin Glargine, Human 1 Unit/0.01 Ml) 5 unit SQ [facility] Last Admin: 10/30/22 22:38 Dose: 5 units Insulin Human Lispro (Insulin Lispro 1 Unit/0.01 Ml Unit) 0 unit SQ [facility]; Protocol Last Admin: 10/31/22 07:44 Dose: 2 units Iron Carb/Multivit/Enigma/Folic Acid (Multivit,Ther Iron,Ca,Fa & Min 1 Tablet) 1 tab PO DAILY [facility] Last Admin: 10/30/22 08:07 Dose: 1 tab Magnesium Oxide (Magnesium Oxide 400 Mg Tablet) 400 mg PO BID [facility] Last Admin: 10/30/22 21:13 Dose: 400 mg Metoprolol Succinate (Metoprolol Succinate 50 Mg Tab.Xl.24h) 25 mg PO HS [facility] Last Admin: 10/30/22 21:17 Dose: 25 mg Midodrine (Midodrine 5 Mg Tablet) 10 mg PO TID@0800,1200,1700 [facility] Last Admin: 10/31/22 07:48 Dose: Not Given Morphine Sulfate (Morphine 4 Mg/Ml Vial) 2 mg IV Q4HP PRN; Protocol PRN Reason: Per Pain Protocol Neomycin/Polymyxin/Dexamethasone (Jonah/Polymyx B Sulf/Dexameth 1 Ribbon Oint.Ophth) 1 ribbon OU BID [facility] Last Admin: 10/30/22 21:13 Dose: Not Given Ondansetron HCl (Ondansetron 4 Mg/2 Ml Vial) 4 mg IV Q6HP PRN PRN Reason: Nausea And Vomiting Senna (Sennosides 1 Tablet) 2 tab PO HS [facility] Last Admin: 10/30/22 21:13 Dose: 2 tab Sodium Chloride (0.9 % Sodium Chloride 10 Ml Syringe) 10 ml IV Q8 [facility] Last Admin: 10/31/22 04:28 Dose: 10 ml Tamsulosin HCl (Tamsulosin 0.4 Mg Capsule) 0.4 mg PO DAILY [facility] Last Admin: 10/30/22 08:08 Dose: 0.4 mg Tramadol HCl (Tramadol 50 Mg Tablet) 50 mg PO TIDP PRN PRN Reason: Pain Trazodone HCl (Trazodone Hcl 50 Mg Tablet) 25 mg PO HSP PRN PRN Reason: Insomnia A/P Narrative A/P Narrative: Assessment and Plans: *UTI(E.coli/Klebsiella) w/Sepsis: -Procalcitonin level 0.31 -cbc w/ auto diff in the morning to trend WBC -Rocephin *Bacteremia(GPC 2/4 bottles): -Repeat blood culture pending, mrsa screen pending -echo pending -cbc w/ auto diff in the morning to trend *Paroxysmal atrial fibrillation: Currently NSR -cont home Digoxin ,Toprol XL ,Eliquis *h/o CAD s/p CABGX3: -cont home Aspirin , Toprol XL , Ezetimibe/Gemfibrozil *T2DM: -HgA1c 7.5 -Hold oral hypoglycemics, Lantus 5 unit HS, SSI -Hypoglycemia protocol, Diabetic diet *Anemia, normocytic normochromic: -cbc w/ auto diff in the morning to trend H/H *BPH s/p TURP: Flomax *Hypophosphatemia: Replace as needed trend *Generalized weakness/deconditioning:Physical therapy evaluation and treatment *b/l gluteal pressure injuries grade 2 & 3, POA: *Constipation: *ppx: Eliquis Code status: Clip Riveter Spent With Patient Time: Total time spent is greater than 50% in coordination of care (as documented) at patient's floor/unit and/or counseling patient: Subsequent: Total time with patient: 50 - 65 Minutes QUALITY VTE Deep Vein Thrombosis/Pulmonary Embolism Present on Admission: No
[2022-10-31] MEDS: TAMSULOSIN 0.4 MG CAPSULE PO SCH (08:32)
[2022-10-31] MEDS: DOCUSATE SODIUM 100 MG CAPSULE PO SCH ×2 (08:32→21:58)
[2022-10-31] MEDS: ASPIRIN 81 MG TAB.CHEW PO SCH (08:32)
[2022-10-31] MEDS: MULTIVIT,THER IRON,CA,FA & MIN 1 TABLET PO SCH (08:32)
[2022-10-31] MEDS: EZETIMIBE 10 MG TABLET PO SCH (08:32)
[2022-10-31] MEDS: MAGNESIUM OXIDE 400 MG TABLET PO SCH ×2 (08:32→21:56)
[2022-10-31] MEDS: BISACODYL 5 MG TABLET PO SCH (08:33)
[2022-10-31] MEDS: APIXABAN 5 MG TABLET PO SCH ×2 (08:33→21:57)
[2022-10-31] MEDS: NEO/POLYMYX B SULF/DEXAMETH 1 RIBBON OINT.OPHTH OU SCH ×2 (08:33→22:59)
[2022-10-31] MEDS: cefTRIAXone 1 GM VIAL IV SCH (08:43)
[2022-10-31 08:56] LABS: ALT/SGPT 13 U/L (<40); AST/SGOT 16 U/L (<40); Albumin 3.2 gm/dL (3.2-5.2); Albumin/Globulin Ratio 1.1 (1.0-2.3); Alkaline Phosphatase 100 U/L (39-117); Bilirubin,Direct < 0.2 mg/dL (0-0.3); Bilirubin,Total 0.4 mg/dL (0.1-1.0); Blood Urea Nitrogen 15 mg/dL (8-23); Calcium 8.2 mg/dL (8.6-10.4); Carbon Dioxide 24 mmol/L (22-30); Chloride 101 mmol/L (96-108); Globulin 2.9 gm/dL (2.2-3.7); Glomerular Filtration Rate 85; Glucose 142 mg/dL (70-105); Lactate Dehydrogenase 200 U/L (135-225); Phosphorous 1.9 mg/dL (2.5-4.5); Triglycerides 99 mg/dL (<150)
[2022-10-31] MEDS ORDERED: LACTULOSE 20 GM/30 ML ORAL.SOL PO PRN (09:21)
[2022-10-31] MEDS: POLYETHYLENE GLYCOL 3350 17 GM PACKET PO SCH (09:51)
[2022-10-31] MEDS: PHOSPHORUS 250 MG TABLET PO SCH ×2 (09:51→22:33)
[2022-10-31] MEDS: NEUTRA PHOS 1 PACKET PO SCH ×2 (09:51→22:34)
--- NOTE | 2022-10-31 14:07 | Discharge Summary ---
Discharge Provider Provider IMPORTANT FOLLOW-UP INFORMATION FOR PCP: Patient information: Note initiated : 10/31/22 at 2:04 pm Service Date, if different from initiated Date: [] Patient: Ramakrishna Burgos 77 y/o M admitted on 10/29/22 for weakness, fall. Chief Complaint: [] Date of admission: 10/29/22 01:51 Discharge date: 11/02/22 Primary care physician: Dioni Kauffman MD Consults: 10/29/22 Consult to Physician [CONS] Stat Comment: Consulting Provider: Nick Rico Reason For Exam: Physician to Consult 10/29/22 15:02 Consult to Physician [CONS] Routine Comment: Consulting Provider: Tyler Wayne Reason For Exam: Physician to Consult COURSE Hospital Course Hospital course: Interval history: Mr. Burgos is a 77 year old M history of CAD status post CABG x3, BPH status post TURP, type 2 diabetes mellitus, essential hypertensions, mixed dyslipidemia, proximal atrial fibrillation's, presenting with general weakness. He stated that he has been feeling weak since his CABG 2 years ago but it has been progressively worsened especially over the past week. Yesterday he is partner fell and unable to continue to take care of him so he decided to come to the ED for evaluation and for treatment and potential placement needs. He denies any fever or chills or diaphoresis. He denies any dysuria or change in urinary frequency or urgency. No GI upset such as nausea vomiting. Vital signs in the presentation significant for elevated heart rate tachycardia heart rate up to the 1 teens beats per minute atrial fibrillation's. Labs significant for leukocytosis WBC 12.1. Lactic acid 1.2. Urine analysis suggesting the presence of urinary infections. CT and x-ray did not reveal any bony fractures or joint dislocations. Admission request discomfort urinary tract infections with associated clinical sepsis. 2: Fever Tmax 38.2 overnight. Blood culture: Gram positive cocci; Urine culture: E coli. WBC 12.1-->7.2. Patient denies any subjective fever chills or diaphoresis. He is coming of headache and pelvic pain secondary to his recent falls. He has poor appetite. He has increasing body strength. Continue IV fluid and Rocephin for urinary tract infections. Since the blood culture is growing completely different bacteria than the urine culture, it is likely contamination's. We will continue to monitor. Pending physical therapy evaluation and treatment for placement planning. 2/3 Afebrile. Leukocytosis resolved. Hypophosphatemia. Replace and trend. Procalcitonin improving. Patient feels constipated. 2/ Patient seems to feel little bit better today. 2 out of 4 blood cultures finally resulted as coag negative staph. Repeat blood cultures negative thus far. [facility] willing to go home with home health. Hypophosphatemia improved. 11/02 Patient feeling well. Wanting to go home. Refusing SNF but amenable to home health. Urinating on own after Bethea removed. Assessment and Plans: *UTI(E.coli/Klebsiella)complicated w/Sepsis: -abx *Bacteremia(Coag neg staph 2/4 bottles): -Repeat blood culture neg. 5-day treatment *Paroxysmal atrial fibrillation: Currently NSR. cont home Digoxin ,Toprol XL ,Eliquis *h/o CAD s/p CABGX3:-cont home Aspirin , Toprol XL , Ezetimibe/Gemfibrozil *T2DM: -HgA1c 7.5, cont home insulin *Anemia, normocytic normochromic: *BPH s/p TURP: Flomax *Hypophosphatemia: Replace as needed trend *Generalized weakness/deconditioning:Physical therapy evaluation and treatment *b/l gluteal pressure injuries grade 2 & 3, POA: *Constipation: Discharge diagnosis: UTI Klebsiella E. coli and sepsis bacteremia Secondary discharge diagnosis: Paroxysmal A. fib CAD diabetes anemia BPH electrolyte imbalance generalized weakness pressure injuries Time Spent with Patient Time attestation: Total time spent providing and/or coordinating discharge services: Time spent: Greater than 30 minutes EXAM Constitutional Vitals: Temp Pulse Resp BP Pulse Ox O2 Del Method O2 Flow Rate 98.4 F 71 16 147/64 96 Room Air 97 10/31/22 12:06 10/31/22 12:06 10/31/22 12:06 10/31/22 12:06 10/31/22 12:06 10/31/22 12:10/30/22 11:28 Discharge Data Data Completed and Pending Labs on day of discharge: Labs from last 24 hours 10/31/22 10/31/22 05:12 05:12 Sodium 137 Potassium 3.7 Chloride 101 Carbon Dioxide 24 Anion Gap 12.0 BUN 15 Creatinine 0.8 GFR Calculation 85 Glucose 142 H Uric Acid 4.0 Calcium 8.2 L Phosphorus 1.9 L Magnesium 1.9 Total Bilirubin 0.4 Direct Bilirubin < 0.2 GGT 21 AST 16 ALT 13 Alkaline Phosphatase 100 Lactate Dehydrogenase 200 Total Protein 6.1 Albumin 3.2 Globulin 2.9 Albumin/Globulin Ratio 1.1 Triglycerides 99 Procalcitonin 0.20 H Preliminary micro results at discharge 10/28/22 21:09 Blood Culture - Preliminary Blood Coagulase negative staph 10/28/22 21:09 Blood Culture - Preliminary Blood Coagulase negative staph Discharge Plan Patient/Caregiver Discharge Instructions Activity: increase activity as tolerated Diet: Consistent Carbohydrate Activity Restrictions/Additional Instructions: cefdinir for 3 days, start on 11/03/2022. Prescriptions: Continued ezetimibe 10 mg tablet 10 mg PO QDAY multivitamin Tablet 1 tab PO QDAY glipizide 5 mg tablet 10 mg PO BIDAC bisacodyl [Dulcolax (bisacodyl)] 1 tab PO DAILY aspirin 81 mg tablet,delayed release (DR/EC) 81 mg PO QDAY apixaban [Eliquis] 5 mg PO BID digoxin 125 mcg (0.125 mg) tablet 125 mcg PO QDAY metoprolol succinate 50 mg tablet extended release 24 hr 25 mg PO HS niacin 1,000 MG tablet extended release 24 hr 500 mg PO DAILY gemfibrozil 600 MG tablet 600 mg PO QAMAC magnesium oxide 500 mg Tablet 500 mg PO BID midodrine 10 mg Tablet 10 mg PO TID Rx Instructions: do not give last dose of day after 6PM or within 4 hrs of bedtime tamsulosin 0.4 mg Capsule 0.4 mg PO BID cefdinir 300 mg capsule 300 mg PO BID 3 Days Qty: 6 0RF Rx Instructions: just started tramadol 100 mg tablet 50 mg PO TID PRN (Reason: Pain) insulin glargine 100 unit/mL (3 mL) insulin pen 5 unit subcut QPM neomycin-polymyxin B-dexameth 3.5 mg/g-10,000 unit/g-0.1 % ointment 1 applic ophthalmic (eye) BID Rx Instructions: both eyes nitrofurantoin monohyd/m-cryst 100 mg capsule 100 mg PO BID 10 Days Qty: 20 0RF Rx Instructions: must administer with a meal/food Follow Up Plan Follow up with: Dioni Kauffman MD [Primary Care Provider] - Patient Disposition: Home Health Service Prognosis: Fair Rehab Potential: Fair Overall status at discharge: patient is progressing back to baseline Discharge Orders: Discharge Order (Routine); Ordered 11/02/22 Ordered By: Steven Solares [facility] VTE Deep Vein Thrombosis/Pulmonary Embolism Present on Admission: No
[2022-10-31] MEDS: DIGOXIN 125 MCG TABLET PO SCH (14:32)
[2022-10-31] MEDS: SENNOSIDES 1 TABLET PO SCH (21:57)
[2022-10-31] MEDS: METOPROLOL SUCCINATE 50 MG TAB.XL.24H PO SCH (22:34)
[2022-10-31] MEDS: INSULIN GLARGINE, HUMAN 1 UNIT/0.01 ML SQ SCH (22:45)
[2022-11-01 07:17] LABS: Blood Urea Nitrogen 14 mg/dL (8-23); Calcium 8.9 mg/dL (8.6-10.4); Carbon Dioxide 27 mmol/L (22-30); Chloride 105 mmol/L (96-108); Glomerular Filtration Rate 85; Glucose 159 mg/dL (70-105)
[2022-11-01] MEDS: 0.9 % SODIUM CHLORIDE 10 ML SYRINGE IV SCH ×3 (07:43→20:48)
[2022-11-01] MEDS: MIDODRINE 5 MG TABLET PO SCH ×4 (07:44→17:32)
[2022-11-01] MEDS: GEMFIBROZIL 600 MG TABLET PO SCH (07:44)
[2022-11-01] MEDS: cefTRIAXone 1 GM VIAL IV SCH (08:03)
[2022-11-01] MEDS: POLYETHYLENE GLYCOL 3350 17 GM PACKET PO SCH ×2 (08:03→14:48)
[2022-11-01] MEDS: MAGNESIUM OXIDE 400 MG TABLET PO SCH ×2 (08:04→20:27)
[2022-11-01] MEDS: ASPIRIN 81 MG TAB.CHEW PO SCH (08:04)
[2022-11-01] MEDS: APIXABAN 5 MG TABLET PO SCH ×2 (08:04→20:27)
[2022-11-01] MEDS: INSULIN LISPRO 1 UNIT/0.01 ML UNIT SQ SCH ×4 (08:04→20:35)
[2022-11-01] MEDS: TAMSULOSIN 0.4 MG CAPSULE PO SCH (08:04)
[2022-11-01] MEDS: MULTIVIT,THER IRON,CA,FA & MIN 1 TABLET PO SCH (08:04)
[2022-11-01] MEDS: DOCUSATE SODIUM 100 MG CAPSULE PO SCH ×2 (08:04→20:27)
[2022-11-01] MEDS: EZETIMIBE 10 MG TABLET PO SCH (08:04)
[2022-11-01] MEDS: BISACODYL 5 MG TABLET PO SCH (08:04)
--- NOTE | 2022-11-01 08:56 | Internal Med Progress Note ---
SUBJECTIVE Subjective Patient information: Note initiated : 11/01/22 at 8:51 am Service Date, if different from initiated Date: [] Patient: Ramakrishna Burgos a 77 y/o M admitted on 10/29/22 for weakness, fall. Chief Complaint: [] Interval history: Mr. Burgos is a 77 year old M history of CAD status post CABG x3, BPH status post TURP, type 2 diabetes mellitus, essential hypertensions, mixed dyslipidemia, proximal atrial fibrillation's, presenting with general weakness. He stated that he has been feeling weak since his CABG 2 years ago but it has been progressively worsened especially over the past week. Yesterday he is partner fell and unable to continue to take care of him so he decided to come to the ED for evaluation and for treatment and potential placement needs. He denies any fever or chills or diaphoresis. He denies any dysuria or change in urinary frequency or urgency. No GI upset such as nausea vomiting. Vital signs in the presentation significant for elevated heart rate tachycardia heart rate up to the 1 teens beats per minute atrial fibrillation's. Labs significant for leukocytosis WBC 12.1. Lactic acid 1.2. Urine analysis suggesting the presence of urinary infections. CT and x-ray did not reveal any bony fractures or joint dislocations. Admission request discomfort urinary tract infections with associated clinical sepsis. 2/2: Fever Tmax 38.2 overnight. Blood culture: Gram positive cocci; Urine culture: E coli. WBC 12.1-->7.2. Patient denies any subjective fever chills or diaphoresis. He is coming of headache and pelvic pain secondary to his recent falls. He has poor appetite. He has increasing body strength. Continue IV fluid and Rocephin for urinary tract infections. Since the blood culture is growing completely different bacteria than the urine culture, it is likely contamination's. We will continue to monitor. Pending physical therapy evaluation and treatment for placement planning. 2/3 Afebrile. Leukocytosis resolved. Hypophosphatemia. Replace and trend. Procalcitonin improving. Patient feels constipated. 2/4 Patient seems to feel little bit better today. 2 out of 4 blood cultures finally resulted as coag negative staph. Repeat blood cultures negative thus far. Patient refusing detention facility willing to go home with home health. Hypophosphatemia improved. Review of Systems: denies headache/fever/chills/nausea/vomiting/chest or abdominal pain/cough/dyspnea/diarrhea. Otherwise see above. Constitutional Vitals: Vital Signs Temp Pulse Resp BP Pulse Ox O2 Del Method O2 Flow Rate 98.1 F 70 20 148/69 94 Room Air 97 11/01/22 07:45 11/01/22 07:45 11/01/22 07:45 11/01/22 07:45 11/01/22 07:45 11/01/22 07:45 10/30/22 11:28 Period Temp Pulse Resp BP Sys/Davis Pulse Ox O2 Del Method O2 Flow Rate Last 24 Hr 97.5 F-98.4 F 68-71 16-22 143-162/63-84 94-98 Room Air-Room Air Intake and Output 10/31/22 11/01/22 11/01/22 19:59 03:59 11:59 Intake Total 550 120 Output Total 1000 651 Balance -450 -531 Weight 92.533 kg Intake & Output: Intake & Output 10/31/22 11/01/22 11/01/22 19:59 03:59 11:59 Intake Total 550 120 Output Total 1000 651 Balance -450 -531 Weight 92.533 kg Intake: Oral 550 120 Output: Urine Catheter Amount 1000 525 Void Amount 125 # of times incontinent of urine 1 Other: Meal Dinner Percent of Meal Consumed 100% Feeding Ability Independent Urine Appearance Clear Clear Urine Color Yellow Yellow Urine Odor Normal Normal Stool Size Small Stool Color Yellow Stool Consistency Soft # Bowel Movements 1 Exam: General: Alert, Awake, No acute Distress Eyes/N/T: EOMI, Head/Neck: neck supple, CV: RRR, No murmurs, Pulm: Clear b/l, no wheezing/rhonchi/rales Abd: soft, nontender, +BS x4 Ext: no clubbing/cyanosis/edema Neuro: Alert, no focal deficits, moves all extremities, Skin: warm/dry OBJ DATA Labs 10/30/22 05:22 11/01/22 05:11 Labs: Abnormal Lab Results 11/01/22 10/31/22 10/31/22 05:11 05:12 05:12 RBC Hgb Hct Lymph # (Auto) Glucose 159 H 142 H Hemoglobin A1c Calcium 8.2 L Phosphorus 1.9 L Lactate Dehydrogenase Albumin Procalcitonin 0.20 H 10/30/22 10/30/22 10/29/22 05:22 05:22 09:50 RBC 3.68 L Hgb 10.0 L Hct 31.1 L Lymph # (Auto) 1.34 L Glucose 121 H Hemoglobin A1c 7.5 H Calcium 8.4 L Phosphorus 1.7 L Lactate Dehydrogenase 247 H Albumin 3.0 L Procalcitonin 0.31 H Meds: Medications Acetaminophen (Acetaminophen 325 Mg Tablet) 650 mg PO Q6HP PRN; Protocol PRN Reason: Per Pain Protocol/Fever > 101 Last Admin: 10/29/22 11:52 Dose: 650 mg Albuterol/Ipratropium (Ipratropium/Albuterol 3 Ml Ampul.Neb) 3 ml NEB Q4HRT PRN PRN Reason: Wheezing Apixaban (Apixaban 5 Mg Tablet) [address] [facility] Last Admin: 11/01/22 08:04 Dose: 5 mg Aspirin (Aspirin 81 Mg Tab.Chew) [address] [facility] Last Admin: 11/01/22 08:04 Dose: 81 mg Bisacodyl (Bisacodyl 5 Mg Tablet) [address] [facility] Last Admin: 11/01/22 08:04 Dose: 5 mg Ceftriaxone Sodium (Ceftriaxone 1 Gm Vial) [address] [facility] Last Admin: 11/01/22 08:03 Dose: 1 gm Dextrose (Dextrose 50% 50 Ml Vial) 0 ml IV UD PRN PRN Reason: Per Sliding Scale Diagnostic Test (Pha) (Accu-Chek 1 Each Strip) [address] [facility] Last Admin: 11/01/22 07:43 Dose: 1 each Digoxin (Digoxin 125 Mcg Tablet) 125 mcg PO DAILY@1400 [facility] Last Admin: 10/31/22 14:32 Dose: 125 mcg Docusate Sodium (Docusate Sodium 100 Mg Capsule) [address] [facility] Last Admin: 11/01/22 08:04 Dose: 100 mg Ezetimibe (Ezetimibe 10 Mg Tablet) [address] [facility] Last Admin: 11/01/22 08:04 Dose: 10 mg Gemfibrozil (Gemfibrozil 600 Mg Tablet) [address] [facility] Last Admin: 11/01/22 07:44 Dose: 600 mg Glucose (Dextrose 31 Gm Oral.Susp) 15 gm PO PRN PRN PRN Reason: Hypoglycemia Insulin Glargine (Insulin Glargine, Human 1 Unit/0.01 Ml) 5 unit SQ [facility] Last Admin: 10/31/22 22:45 Dose: 5 units Insulin Human Lispro (Insulin Lispro 1 Unit/0.01 Ml Unit) 0 unit SQ [facility]; Protocol Last Admin: 11/01/22 08:04 Dose: 4 units Iron Carb/Multivit/Revloc/Folic Acid (Multivit,Ther Iron,Ca,Fa & Min 1 Tablet) [address] [facility] Last Admin: 11/01/22 08:04 Dose: 1 tab Lactulose (Lactulose 20 Gm/30 Ml Oral.Silvia) 10 gm PO DAILYP PRN PRN Reason: Constipation Magnesium Oxide (Magnesium Oxide 400 Mg Tablet) [address] [facility] Last Admin: 11/01/22 08:04 Dose: 400 mg Metoprolol Succinate (Metoprolol Succinate 50 Mg Tab.Xl.24h) 25 mg PO [facility] Last Admin: 10/31/22 22:34 Dose: 25 mg Midodrine (Midodrine 5 Mg Tablet) 10 mg PO TID@0800,1200,1700 [facility] Last Admin: 11/01/22 07:46 Dose: Not Given Morphine Sulfate (Morphine 4 Mg/Ml Vial) 2 mg IV Q4HP PRN; Protocol PRN Reason: Per Pain Protocol Neomycin/Polymyxin/Dexamethasone (Jonah/Polymyx B Sulf/Dexameth 1 Ribbon Oint.Ophth) [address] [facility] Last Admin: 10/31/22 22:59 Dose: Not Given Ondansetron HCl (Ondansetron 4 Mg/2 Ml Vial) 4 mg IV Q6HP PRN PRN Reason: Nausea And Vomiting Polyethylene Glycol (Polyethylene Glycol 3350 17 Gm Packet) [address] [facility] Last Admin: 11/01/22 08:03 Dose: 17 gm Senna (Sennosides 1 Tablet) 2 tab PO [facility] Last Admin: 10/31/22 21:57 Dose: 2 tab Sodium Chloride (0.9 % Sodium Chloride 10 Ml Syringe) [address] [facility] Last Admin: 11/01/22 07:43 Dose: 10 ml Tamsulosin HCl (Tamsulosin 0.4 Mg Capsule) 0.[address] [facility] Last Admin: 02/04/23 08:04 Dose: 0.4 mg Tramadol HCl (Tramadol 50 Mg Tablet) 50 mg PO TIDP PRN PRN Reason: Pain Trazodone HCl (Trazodone Hcl 50 Mg Tablet) 25 mg PO HSP PRN PRN Reason: Insomnia A/P Narrative A/P Narrative: Assessment and Plans: *UTI(E.coli/Klebsiella) w/Sepsis: improving -Procalcitonin level elevated but improving -cbc w/ auto diff in the morning to trend WBC -Rocephin *Bacteremia(Coag neg staph 2/4 bottles): -Repeat blood culture neg. 5-day treatment -echo pending -cbc w/ auto diff in the morning to trend *Paroxysmal atrial fibrillation: Currently NSR -cont home Digoxin ,Toprol XL ,Eliquis *h/o CAD s/p CABGX3: -cont home Aspirin , Toprol XL , Ezetimibe/Gemfibrozil *T2DM: -HgA1c 7.5 -Hold oral hypoglycemics, Lantus 5 unit HS, SSI -Hypoglycemia protocol, Diabetic diet *Anemia, normocytic normochromic: -cbc w/ auto diff in the morning to trend H/H *BPH s/p TURP: Flomax *Hypophosphatemia: Replace as needed trend *Generalized weakness/deconditioning:Physical therapy evaluation and treatment *b/l gluteal pressure injuries grade 2 & 3, POA: *Constipation: *ppx: Eliquis Code status: Device Sales Consultant Spent With Patient Time: Total time spent is greater than 50% in coordination of care (as documented) at patient's floor/unit and/or counseling patient: Subsequent: Total time with patient: 35 - 49 minutes QUALITY VTE Deep Vein Thrombosis/Pulmonary Embolism Present on Admission: No
[2022-11-01] MEDS: NEO/POLYMYX B SULF/DEXAMETH 1 RIBBON OINT.OPHTH OU SCH ×2 (09:04→20:39)
[2022-11-01] MEDS: DIGOXIN 125 MCG TABLET PO SCH (14:48)
[2022-11-01] MEDS: SENNOSIDES 1 TABLET PO SCH (20:26)
[2022-11-01] MEDS: METOPROLOL SUCCINATE 50 MG TAB.XL.24H PO SCH (20:27)
[2022-11-01] MEDS: INSULIN GLARGINE, HUMAN 1 UNIT/0.01 ML SQ SCH (20:36)
[2022-11-02] MEDS: 0.9 % SODIUM CHLORIDE 10 ML SYRINGE IV SCH (05:56)
[2022-11-02] MEDS: BISACODYL 5 MG TABLET PO SCH (08:12)
[2022-11-02] MEDS: MULTIVIT,THER IRON,CA,FA & MIN 1 TABLET PO SCH (08:12)
[2022-11-02] MEDS: ASPIRIN 81 MG TAB.CHEW PO SCH (08:12)
[2022-11-02] MEDS: MAGNESIUM OXIDE 400 MG TABLET PO SCH (08:12)
[2022-11-02] MEDS: INSULIN LISPRO 1 UNIT/0.01 ML UNIT SQ SCH (08:12)
[2022-11-02] MEDS: GEMFIBROZIL 600 MG TABLET PO SCH (08:12)
[2022-11-02] MEDS: EZETIMIBE 10 MG TABLET PO SCH (08:12)
[2022-11-02] MEDS: APIXABAN 5 MG TABLET PO SCH (08:12)
[2022-11-02] MEDS: TAMSULOSIN 0.4 MG CAPSULE PO SCH (08:12)
[2022-11-02] MEDS: NEO/POLYMYX B SULF/DEXAMETH 1 RIBBON OINT.OPHTH OU SCH (08:13)
[2022-11-02] MEDS: DOCUSATE SODIUM 100 MG CAPSULE PO SCH (08:13)
[2022-11-02] MEDS: cefTRIAXone 1 GM VIAL IV SCH (08:13)
[2022-11-02] MEDS: POLYETHYLENE GLYCOL 3350 17 GM PACKET PO SCH (08:13)
[2022-11-02] MEDS: MIDODRINE 5 MG TABLET PO SCH (08:22)
== END 2022-11-02 11:20 | disposition home health service (06) | DRG 872 ==
LOC: ED 19:47 → ICU 10-29 01:51 → MEDSUR 10-30 08:44
PROVIDERS: ADMIT Internal Medicine; ATTEND Internal Medicine

== ENCOUNTER 2023-06-30 07:56 | Inpatient (IN) ==
[2023-06-30 09:25] LABS: POC Calcium, Ionized 1.25 (1.16-1.32); POC Creatinine 1.1 (0.6-1.2)
[2023-06-30 10:10] LABS: Hematocrit 40.5 % (40.1-51.0); Hemoglobin 13.3 g/dL (13.7-17.5); Mean Cell Volume 82.2 fL (80.0-100.0); Mean Corpuscular HGB Conc 32.8 g/dL (31.0-36.0); Mean Platelet Volume 11.4 fL (8.8-12.5); Platelet Count 190 K/mcL (140-440); RBC 4.93 M/mcL (4.63-6.08); Red Cell Distribution Width 13.3 % (11.5-14.5); WBC 7.2 K/mcL (4.5-11.0)
[2023-06-30 10:38] LABS: ALT/SGPT 11 U/L (<40); AST/SGOT 12 U/L (<40); Albumin 3.8 gm/dL (3.2-5.2); Alkaline Phosphatase 88 U/L (39-117); Bilirubin,Direct < 0.2 mg/dL (0-0.3); Bilirubin,Total 0.4 mg/dL (0.1-1.0); Globulin 2.8 gm/dL (2.2-3.7)
[2023-06-30 10:50] LABS: Band Neutrophils % 7 % (0-10); Basophils % (Manual) 1 % (0-2); Eosinophils % (Manual) 7 % (0-7); Lymphocytes % 17 % (15-49); Monocytes % (Manual) 1 % (1-12); Platelet Estimate NORMAL (Normal); RBC Morphology NORMAL (Normal); Segmented Neutrophils % 67 % (38-78)
[2023-06-30 11:58] LABS: Appearance,Urine CLOUDY (Clear); Bilirubin,Urine Negative (Negative); Color,Urine RED; Culture Indicated,Urine Y; Glucose,Urine (UA) 50 mg/dL (Negative); Ketones,Urine Negative (Negative); Leukocyte Esterase,Urine Negative /uL (Negative); Nitrate,Urine Negative (Negative); Protein,Urine 100 mg/dL (Negative); Urine Blood >=1.0 mg/dL (Negative); Urine RBC > 182 /hpf (0-1); Urine Squamous Epithelial Cell 0 /hpf (0-4); Urine WBC 41 /hpf (0-4); Urobilinogen,Urine Negative
[2023-06-30] MEDS ORDERED: PIPERACILLIN SODIUM/TAZOBACTAM 3.375 GM in DEXTROSE 5% IN WATER 50 ML IV ONE (12:12)
[2023-06-30] MEDS ORDERED: DEXTROSE 50% 50 ML VIAL IV PRN (14:16)
[2023-06-30] MEDS ORDERED: 0.9 % SODIUM CHLORIDE 10 ML SYRINGE IV PRN (14:16)
[2023-06-30] MEDS ORDERED: DEXTROSE 31 GM ORAL.SUSP PO PRN (14:16)
[2023-06-30] MEDS ORDERED: ACETAMINOPHEN 325 MG TABLET PO PRN (14:16)
[2023-06-30] MEDS ORDERED: ONDANSETRON 4 MG/2 ML VIAL IV PRN (14:16)
[2023-06-30] MEDS: 0.9 % SODIUM CHLORIDE 10 ML SYRINGE IV SCH ×3 (18:01→20:06)
[2023-06-30] MEDS: INSULIN LISPRO 1 UNIT/0.01 ML UNIT SQ SCH ×2 (18:02→20:06)
[2023-06-30] MEDS: DOCUSATE SODIUM 100 MG CAPSULE PO SCH (20:06)
[2023-06-30] MEDS: SENNOSIDES 1 TABLET PO SCH (20:06)
[2023-06-30] MEDS: INSULIN GLARGINE, HUMAN 1 UNIT/0.01 ML SQ SCH (20:17)
[2023-06-30] MEDS: PIPERACILLIN SODIUM/TAZOBACTAM 4.5 GM in DEXTROSE 5% IN WATER 50 ML IV SCH (20:17)
[2023-07-01] MEDS: PIPERACILLIN SODIUM/TAZOBACTAM 4.5 GM in DEXTROSE 5% IN WATER 50 ML IV SCH ×3 (05:28→22:24)
[2023-07-01] MEDS: 0.9 % SODIUM CHLORIDE 10 ML SYRINGE IV SCH ×5 (05:29→20:20)
[2023-07-01 06:28] LABS: Hematocrit 37.2 % (40.1-51.0); Hemoglobin 12.1 g/dL (13.7-17.5)
[2023-07-01] MEDS: INSULIN LISPRO 1 UNIT/0.01 ML UNIT SQ SCH ×4 (07:43→20:19)
[2023-07-01 08:21] LABS: Estimated Average Glucose(eAG) 177 mg/dL; Hemoglobin A1C 7.8 % Hgb (4.0-6.0)
[2023-07-01] MEDS: DOCUSATE SODIUM 100 MG CAPSULE PO SCH ×2 (08:40→20:19)
[2023-07-01] MEDS ORDERED: BISACODYL 10 MG SUPP.RECT PR PRN (08:57)
[2023-07-01] MEDS ORDERED: MIDODRINE HCL 10 MG TABLET PO SCH (09:00)
[2023-07-01] MEDS ORDERED: MIDODRINE 5 MG TABLET PO PRN (09:06)
[2023-07-01] MEDS: ATORVASTATIN 20 MG TABLET PO SCH (09:52)
[2023-07-01] MEDS: FEXOFENADINE 180 MG TABLET PO SCH (09:52)
[2023-07-01] MEDS: MELOXICAM 7.5 MG TABLET PO SCH (09:52)
[2023-07-01] MEDS: LACTULOSE 20 GM/30 ML ORAL.SOL PO SCH ×3 (10:56→20:18)
[2023-07-01] MEDS: DIGOXIN 125 MCG TABLET PO SCH (15:56)
[2023-07-01] MEDS: SENNOSIDES 1 TABLET PO SCH (20:18)
[2023-07-01] MEDS: INSULIN GLARGINE, HUMAN 1 UNIT/0.01 ML SQ SCH (20:18)
[2023-07-01] MEDS: NIACIN 250 MG CAP.SR.12H PO SCH (20:19)
[2023-07-01] MEDS: TAMSULOSIN 0.4 MG CAPSULE PO SCH (20:19)
[2023-07-01] MEDS: METOPROLOL TARTRATE 50 MG TABLET PO SCH (20:19)
[2023-07-01] MEDS: MAGNESIUM OXIDE 400 MG TABLET PO SCH (20:19)
[2023-07-01] MEDS ORDERED: MAGNESIUM 250 MG PO SCH (21:00)
[2023-07-02] MEDS: 0.9 % SODIUM CHLORIDE 10 ML SYRINGE IV SCH ×5 (05:09→21:40)
[2023-07-02] MEDS: PIPERACILLIN SODIUM/TAZOBACTAM 4.5 GM in DEXTROSE 5% IN WATER 50 ML IV SCH ×3 (05:09→21:59)
[2023-07-02] MEDS: PANTOPRAZOLE 40 MG TABLET PO SCH (06:59)
[2023-07-02 07:24] LABS: Hematocrit 37.1 % (40.1-51.0); Hemoglobin 12.2 g/dL (13.7-17.5)
[2023-07-02] MEDS: INSULIN LISPRO 1 UNIT/0.01 ML UNIT SQ SCH ×4 (07:37→21:39)
[2023-07-02 07:46] LABS: Digoxin 1.1 ng/mL
[2023-07-02] MEDS: LACTULOSE 20 GM/30 ML ORAL.SOL PO SCH ×3 (08:20→21:39)
[2023-07-02] MEDS: ATORVASTATIN 20 MG TABLET PO SCH (08:21)
[2023-07-02] MEDS: MELOXICAM 7.5 MG TABLET PO SCH (08:21)
[2023-07-02] MEDS: MAGNESIUM OXIDE 400 MG TABLET PO SCH ×2 (08:21→21:33)
[2023-07-02] MEDS: DOCUSATE SODIUM 100 MG CAPSULE PO SCH ×2 (08:21→21:39)
[2023-07-02] MEDS: FEXOFENADINE 180 MG TABLET PO SCH (08:26)
[2023-07-02] MEDS: DIGOXIN 125 MCG TABLET PO SCH (13:27)
[2023-07-02] MEDS: METOPROLOL TARTRATE 50 MG TABLET PO SCH (21:32)
[2023-07-02] MEDS: TAMSULOSIN 0.4 MG CAPSULE PO SCH (21:33)
[2023-07-02] MEDS: NIACIN 250 MG CAP.SR.12H PO SCH (21:33)
[2023-07-02] MEDS: SENNOSIDES 1 TABLET PO SCH (21:40)
[2023-07-02] MEDS: INSULIN GLARGINE, HUMAN 1 UNIT/0.01 ML SQ SCH (21:40)
[2023-07-03] MEDS ORDERED: SCOPOLAMINE 1 PATCH PATCH TOPICAL PRN (05:00)
[2023-07-03] MEDS ORDERED: IPRATROPIUM/ALBUTEROL 3 ML AMPUL.NEB NEB PRN ×2 (05:00→12:12)
[2023-07-03] MEDS: 0.9 % SODIUM CHLORIDE 10 ML SYRINGE IV SCH ×6 (05:05→22:00)
[2023-07-03] MEDS: PIPERACILLIN SODIUM/TAZOBACTAM 4.5 GM in DEXTROSE 5% IN WATER 50 ML IV SCH ×3 (05:05→22:00)
[2023-07-03 06:23] LABS: Hematocrit 37.4 % (40.1-51.0); Hemoglobin 11.8 g/dL (13.7-17.5)
[2023-07-03] MEDS: PANTOPRAZOLE 40 MG TABLET PO SCH ×2 (07:58→08:07)
[2023-07-03] MEDS: INSULIN LISPRO 1 UNIT/0.01 ML UNIT SQ SCH ×4 (08:05→20:30)
[2023-07-03] MEDS: FEXOFENADINE 180 MG TABLET PO SCH (08:32)
[2023-07-03] MEDS: LACTULOSE 20 GM/30 ML ORAL.SOL PO SCH ×3 (08:33→20:29)
[2023-07-03] MEDS: DOCUSATE SODIUM 100 MG CAPSULE PO SCH ×2 (08:33→20:29)
[2023-07-03] MEDS: MAGNESIUM OXIDE 400 MG TABLET PO SCH ×2 (08:34→20:29)
[2023-07-03] MEDS: ATORVASTATIN 20 MG TABLET PO SCH (08:34)
[2023-07-03] MEDS: MELOXICAM 7.5 MG TABLET PO SCH (08:35)
[2023-07-03] MEDS ORDERED: LIDOCAINE 2% URO-JET 10 ML JEL.PF.APP UR ONE (11:12)
[2023-07-03] MEDS ORDERED: IOVERSOL 20 ML VIAL IV ONE (11:12)
[2023-07-03] MEDS ORDERED: fentaNYL 100 MCG/2 ML VIAL IV ONE (11:13)
[2023-07-03] MEDS ORDERED: PROPOFOL 200 MG/20 ML VIAL IV ONE (11:13)
[2023-07-03] MEDS ORDERED: ePHEDrine 50 MG/5 ML SYRINGE (ANEST) IV ONE (12:09)
[2023-07-03] MEDS ORDERED: PHENYLephrine 1 MG/10 ML SYRINGE (ANEST) ONE (12:10)
[2023-07-03] MEDS ORDERED: fentaNYL 100 MCG/2 ML VIAL IV PRN (12:12)
[2023-07-03] MEDS ORDERED: NALOXONE HCL 0.4 MG/ML VIAL IV PRN (12:12)
[2023-07-03] MEDS ORDERED: ONDANSETRON 4 MG/2 ML VIAL ONE (12:32)
[2023-07-03] MEDS: DIGOXIN 125 MCG TABLET PO SCH (14:43)
[2023-07-03] MEDS: NIACIN 250 MG CAP.SR.12H PO SCH (20:29)
[2023-07-03] MEDS: SENNOSIDES 1 TABLET PO SCH (20:29)
[2023-07-03] MEDS: TAMSULOSIN 0.4 MG CAPSULE PO SCH (20:29)
[2023-07-03] MEDS: METOPROLOL TARTRATE 50 MG TABLET PO SCH (20:30)
[2023-07-03] MEDS: INSULIN GLARGINE, HUMAN 1 UNIT/0.01 ML SQ SCH (20:30)
[2023-07-04] MEDS: 0.9 % SODIUM CHLORIDE 10 ML SYRINGE IV SCH ×5 (05:54→22:10)
[2023-07-04] MEDS: PIPERACILLIN SODIUM/TAZOBACTAM 4.5 GM in DEXTROSE 5% IN WATER 50 ML IV SCH ×3 (05:54→22:10)
[2023-07-04] MEDS: PANTOPRAZOLE 40 MG TABLET PO SCH (07:34)
[2023-07-04] MEDS: INSULIN LISPRO 1 UNIT/0.01 ML UNIT SQ SCH ×4 (07:46→22:09)
[2023-07-04 08:08] LABS: Albumin 3.4 gm/dL (3.2-5.2); Blood Urea Nitrogen 16 mg/dL (8-23); Calcium 8.9 mg/dL (8.6-10.4); Carbon Dioxide 30 mmol/L (22-30); Chloride 103 mmol/L (96-108); Glomerular Filtration Rate 47; Glucose 203 mg/dL (70-105); Phosphorous 3.8 mg/dL (2.5-4.5)
[2023-07-04 08:42] LABS: Hematocrit 36.8 % (40.1-51.0); Hemoglobin 11.7 g/dL (13.7-17.5)
[2023-07-04] MEDS: DOCUSATE SODIUM 100 MG CAPSULE PO SCH ×2 (09:49→22:01)
[2023-07-04] MEDS: FEXOFENADINE 180 MG TABLET PO SCH (09:49)
[2023-07-04] MEDS: LACTULOSE 20 GM/30 ML ORAL.SOL PO SCH ×3 (09:49→22:08)
[2023-07-04] MEDS: ATORVASTATIN 20 MG TABLET PO SCH (09:49)
[2023-07-04] MEDS: MAGNESIUM OXIDE 400 MG TABLET PO SCH ×2 (09:49→22:01)
[2023-07-04] MEDS: 0.9 % SODIUM CHLORIDE 1,000 ML IV SCH ×2 (09:50→13:43)
[2023-07-04] MEDS: DIGOXIN 125 MCG TABLET PO SCH (13:57)
[2023-07-04] MEDS ORDERED: BENZOCAINE/MENTHOL 1 LOZENGE PO PRN (17:56)
[2023-07-04] MEDS ORDERED: SUCRETS LOZENGE PO PRN (19:48)
[2023-07-04] MEDS ORDERED: SUCRETS LOZENGE PO ONE (19:50)
[2023-07-04] MEDS: METOPROLOL TARTRATE 50 MG TABLET PO SCH (22:01)
[2023-07-04] MEDS: SENNOSIDES 1 TABLET PO SCH (22:01)
[2023-07-04] MEDS: NIACIN 250 MG CAP.SR.12H PO SCH (22:01)
[2023-07-04] MEDS: TAMSULOSIN 0.4 MG CAPSULE PO SCH (22:02)
[2023-07-04] MEDS: INSULIN GLARGINE, HUMAN 1 UNIT/0.01 ML SQ SCH (22:09)
[2023-07-05] MEDS: PIPERACILLIN SODIUM/TAZOBACTAM 4.5 GM in DEXTROSE 5% IN WATER 50 ML IV SCH ×3 (05:52→22:44)
[2023-07-05] MEDS: 0.9 % SODIUM CHLORIDE 10 ML SYRINGE IV SCH ×6 (05:52→22:45)
[2023-07-05 07:51] LABS: Albumin 3.3 gm/dL (3.2-5.2); Blood Urea Nitrogen 13 mg/dL (8-23); Calcium 8.6 mg/dL (8.6-10.4); Carbon Dioxide 27 mmol/L (22-30); Chloride 107 mmol/L (96-108); Glomerular Filtration Rate 63; Glucose 161 mg/dL (70-105); Phosphorous 2.4 mg/dL (2.5-4.5)
[2023-07-05] MEDS: INSULIN LISPRO 1 UNIT/0.01 ML UNIT SQ SCH ×4 (08:02→22:36)
[2023-07-05] MEDS: PANTOPRAZOLE 40 MG TABLET PO SCH (08:03)
[2023-07-05] MEDS: FEXOFENADINE 180 MG TABLET PO SCH (08:32)
[2023-07-05] MEDS: ATORVASTATIN 20 MG TABLET PO SCH (08:32)
[2023-07-05] MEDS: MAGNESIUM OXIDE 400 MG TABLET PO SCH ×2 (08:32→22:22)
[2023-07-05] MEDS: DOCUSATE SODIUM 100 MG CAPSULE PO SCH ×2 (09:04→22:20)
[2023-07-05] MEDS: LACTULOSE 20 GM/30 ML ORAL.SOL PO SCH (09:04)
[2023-07-05] MEDS: MELOXICAM 7.5 MG TABLET PO SCH (12:56)
[2023-07-05] MEDS: DIGOXIN 125 MCG TABLET PO SCH (14:13)
[2023-07-05] MEDS ORDERED: traMADol 50 MG TABLET PO PRN (15:50)
[2023-07-05] MEDS: TAMSULOSIN 0.4 MG CAPSULE PO SCH (22:21)
[2023-07-05] MEDS: NIACIN 250 MG CAP.SR.12H PO SCH (22:21)
[2023-07-05] MEDS: METOPROLOL TARTRATE 50 MG TABLET PO SCH (22:21)
[2023-07-05] MEDS: SENNOSIDES 1 TABLET PO SCH (22:24)
[2023-07-05] MEDS: INSULIN GLARGINE, HUMAN 1 UNIT/0.01 ML SQ SCH (22:35)
[2023-07-06] MEDS: 0.9 % SODIUM CHLORIDE 10 ML SYRINGE IV SCH ×2 (06:02→09:11)
[2023-07-06] MEDS: PIPERACILLIN SODIUM/TAZOBACTAM 4.5 GM in DEXTROSE 5% IN WATER 50 ML IV SCH (06:02)
[2023-07-06 06:38] LABS: Basophils % (Auto) 1.5 % (0.0-2.0); Eosinophils # (Auto) 0.67 K/mcL (0.00-0.70); Eosinophils % (Auto) 9.8 % (0.0-7.0); Hematocrit 36.5 % (40.1-51.0); Hemoglobin 11.5 g/dL (13.7-17.5); Lymphocytes # (Auto) 1.51 K/mcL (1.50-4.80); Lymphocytes % (Auto) 22.2 % (15.5-49.0); Mean Cell Volume 83.9 fL (80.0-100.0); Mean Corpuscular HGB Conc 31.5 g/dL (31.0-36.0); Mean Platelet Volume 11.4 fL (8.8-12.5); Monocytes # (Auto) 0.58 K/mcL (0.10-0.90); Monocytes % (Auto) 8.5 % (1.0-12.0); Neutrophils % (Auto) 57.7 % (38.0-78.0); Platelet Count 184 K/mcL (140-440); RBC 4.35 M/mcL (4.63-6.08); Red Cell Distribution Width 13.2 % (11.5-14.5); WBC 6.8 K/mcL (4.5-11.0)
[2023-07-06 06:54] LABS: Blood Urea Nitrogen 12 mg/dL (8-23); Calcium 8.7 mg/dL (8.6-10.4); Carbon Dioxide 27 mmol/L (22-30); Chloride 105 mmol/L (96-108); Glomerular Filtration Rate 71; Glucose 141 mg/dL (70-105)
[2023-07-06] MEDS: PANTOPRAZOLE 40 MG TABLET PO SCH (07:11)
[2023-07-06] MEDS: INSULIN LISPRO 1 UNIT/0.01 ML UNIT SQ SCH ×2 (07:49→12:02)
[2023-07-06] MEDS: MELOXICAM 7.5 MG TABLET PO SCH (09:08)
[2023-07-06] MEDS: MAGNESIUM OXIDE 400 MG TABLET PO SCH (09:08)
[2023-07-06] MEDS: ATORVASTATIN 20 MG TABLET PO SCH (09:09)
[2023-07-06] MEDS: DOCUSATE SODIUM 100 MG CAPSULE PO SCH (09:10)
[2023-07-06] MEDS: FEXOFENADINE 180 MG TABLET PO SCH (10:48)
== END 2023-07-06 12:27 | disposition swing bed (61) | DRG 661 ==
LOC: ED 07:56 → MEDSUR 14:00
PROVIDERS: ADMIT Internal Medicine; ATTEND Internal Medicine

== ENCOUNTER 2024-01-03 19:13 | Inpatient (IN) ==
[2024-01-03] MEDS: LACTATED RINGERS 1,000 ML IV ONE (19:26)
[2024-01-03 20:33] LABS: Basophils # (Auto) 0.03 K/mcL (0.00-0.30); Basophils % (Auto) 0.2 % (0.0-2.0); Eosinophils # (Auto) 0.14 K/mcL (0.00-0.70); Eosinophils % (Auto) 1.1 % (0.0-7.0); Hematocrit 41.4 % (40.1-51.0); Hemoglobin 13.1 g/dL (13.7-17.5); Lymphocytes # (Auto) 0.69 K/mcL (1.50-4.80); Lymphocytes % (Auto) 5.7 % (15.5-49.0); Mean Cell Volume 81.8 fL (80.0-100.0); Mean Corpuscular HGB Conc 31.6 g/dL (31.0-36.0); Mean Platelet Volume 11.4 fL (8.8-12.5); Monocytes # (Auto) 0.48 K/mcL (0.10-0.90); Monocytes % (Auto) 3.9 % (1.0-12.0); Neutrophils % (Auto) 88.9 % (38.0-78.0); Platelet Count 202 K/mcL (140-440); RBC 5.06 M/mcL (4.63-6.08); Red Cell Distribution Width 13.1 % (11.5-14.5); WBC 12.2 K/mcL (4.5-11.0)
[2024-01-03 20:53] LABS: C-Reactive Protein 1.04 mg/dL (0.03-0.80)
[2024-01-03 20:58] LABS: AST/SGOT 14 U/L (<40); Albumin 3.7 gm/dL (3.2-5.2); Albumin/Globulin Ratio 1.2 (1.0-2.3); Alkaline Phosphatase 97 U/L (39-117); Bilirubin,Total 0.5 mg/dL (0.1-1.0); Blood Urea Nitrogen 15 mg/dL (8-23); Calcium 9.8 mg/dL (8.6-10.4); Carbon Dioxide 28 mmol/L (22-30); Chloride 103 mmol/L (96-108); Globulin 3.1 gm/dL (2.2-3.7); Glomerular Filtration Rate 71; Glucose 239 mg/dL (70-105)
[2024-01-03 22:03] LABS: Appearance,Urine TURBID (Clear); Bilirubin,Urine Negative (Negative); Color,Urine AMBER; Culture Indicated,Urine Yes; Glucose,Urine (UA) 150 mg/dL (Negative); Ketones,Urine Negative (Negative); Leukocyte Esterase,Urine 500 /uL (Negative); Nitrate,Urine Negative (Negative); Protein,Urine 30 mg/dL (Negative); Specific Gravity,Urine 1.014 (1.000-1.035); Urine Blood >=1.0 mg/dL (Negative); Urine RBC > 182 /hpf (0-1); Urine Squamous Epithelial Cell 0 /hpf (0-4); Urine WBC > 182 /hpf (0-4); Urobilinogen,Urine Negative
[2024-01-04] MEDS: PIPERACILLIN SODIUM/TAZOBACTAM 3.375 GM in DEXTROSE 5% IN WATER 50 ML IV ONE (00:43)
[2024-01-04] MEDS ORDERED: ACETAMINOPHEN 325 MG TABLET PO PRN (01:31)
[2024-01-04] MEDS ORDERED: ONDANSETRON 4 MG/2 ML VIAL IV PRN ×2 (01:31→07:59)
[2024-01-04] MEDS: PIPERACILLIN SODIUM/TAZOBACTAM 3.375 GM in DEXTROSE 5% IN WATER 50 ML IV SCH (03:28)
[2024-01-04] MEDS: 0.9 % SODIUM CHLORIDE 10 ML SYRINGE IV SCH ×2 (05:09→15:09)
[2024-01-04] MEDS ORDERED: traMADol (PP) 50 MG TABLET (#4) PO PRN (07:58)
[2024-01-04] MEDS ORDERED: MAGNESIUM SULFATE 2 GM/50 ML BAG IV PRN (07:59)
[2024-01-04] MEDS ORDERED: SENNOSIDES 1 TABLET PO PRN (07:59)
[2024-01-04] MEDS ORDERED: POTASSIUM CHLORIDE 20 MEQ TABLET PO PRN ×2 (07:59)
[2024-01-04] MEDS ORDERED: POTASSIUM CHLORIDE 40 MEQ in DEXTROSE 5% IN WATER 500 ML IV PRN (07:59)
[2024-01-04] MEDS ORDERED: POLYETHYLENE GLYCOL 3350 17 GM PACKET PO PRN (07:59)
[2024-01-04] MEDS ORDERED: IPRATROPIUM/ALBUTEROL 3 ML AMPUL.NEB NEB PRN (08:01)
[2024-01-04] MEDS ORDERED: METOPROLOL TARTRATE 5 MG/5 ML VIAL IV PRN (08:02)
[2024-01-04] MEDS ORDERED: LACTULOSE 20 GM/30 ML ORAL.SOL PO PRN (08:11)
[2024-01-04] MEDS: APIXABAN 5 MG TABLET PO SCH (08:29)
[2024-01-04] MEDS: PANTOPRAZOLE 40 MG TABLET PO SCH (08:30)
[2024-01-04] MEDS: DOCUSATE SODIUM 100 MG CAPSULE PO SCH (08:38)
[2024-01-04] MEDS: PIPERACILLIN SODIUM/TAZOBACTAM 3.375 GM in 0.9 % SODIUM CHLORIDE 100 ML IV SCH (08:39)
[2024-01-04] MEDS ORDERED: NON FORMULARY MEDICATION 1 DOSE MISCELL (Digoxin 250 mcg (0.25 mg) tablet) PO SCH (09:00)
[2024-01-04] MEDS ORDERED: ENOXAPARIN 30 MG/0.3 ML SYRINGE SQ SCH (09:00)
[2024-01-04] MEDS ORDERED: ASPIRIN 81 MG TAB.CHEW CHEWED SCH (09:00)
[2024-01-04] MEDS ORDERED: DOCUSATE SODIUM 100 MG CAPSULE PO SCH (09:00)
[2024-01-04] MEDS: INSULIN LISPRO 1 UNIT/0.01 ML UNIT SQ SCH (12:18)
[2024-01-04] MEDS: DIGOXIN 125 MCG TABLET PO SCH (15:05)
[2024-01-04] MEDS: METOPROLOL TARTRATE 25 MG TABLET PO SCH (20:47)
[2024-01-04] MEDS: TAMSULOSIN 0.4 MG CAPSULE PO SCH (20:48)
[2024-01-04] MEDS: INSULIN GLARGINE, HUMAN 1 UNIT/0.01 ML SQ SCH (20:52)
[2024-01-04] MEDS ORDERED: SENNOSIDES 1 TABLET PO SCH (21:00)
[2024-01-04] MEDS ORDERED: BACLOFEN 10 MG TABLET PO PRN (21:00)
[2024-01-05 06:26] LABS: Basophils # (Auto) 0.06 K/mcL (0.00-0.30); Basophils % (Auto) 0.7 % (0.0-2.0); Eosinophils # (Auto) 0.54 K/mcL (0.00-0.70); Eosinophils % (Auto) 6.1 % (0.0-7.0); Hematocrit 43.6 % (40.1-51.0); Hemoglobin 14.3 g/dL (13.7-17.5); Mean Cell Volume 78.4 fL (80.0-100.0); Mean Corpuscular HGB Conc 32.8 g/dL (31.0-36.0); Mean Platelet Volume 10.8 fL (8.8-12.5); Monocytes # (Auto) 0.48 K/mcL (0.10-0.90); Monocytes % (Auto) 5.4 % (1.0-12.0); Neutrophils % (Auto) 78.6 % (38.0-78.0); Platelet Count 152 K/mcL (140-440); RBC 5.56 M/mcL (4.63-6.08); Red Cell Distribution Width 13.2 % (11.5-14.5); WBC 8.9 K/mcL (4.5-11.0)
[2024-01-05 06:42] LABS: Blood Urea Nitrogen 14 mg/dL (8-23); Calcium 9.1 mg/dL (8.6-10.4); Carbon Dioxide 26 mmol/L (22-30); Chloride 104 mmol/L (96-108); Glomerular Filtration Rate 71; Glucose 137 mg/dL (70-105)
[2024-01-05 07:11] LABS: ALT/SGPT < 40 U/L (<40); AST/SGOT 20 U/L (<40); Albumin 3.5 gm/dL (3.2-5.2); Albumin/Globulin Ratio 1.2 (1.0-2.3); Alkaline Phosphatase 83 U/L (39-117); Bilirubin,Direct < 0.2 mg/dL (0-0.3); Bilirubin,Total 0.7 mg/dL (0.1-1.0); Blood Urea Nitrogen 14 mg/dL (8-23); Calcium 9.1 mg/dL (8.6-10.4); Carbon Dioxide 23 mmol/L (22-30); Chloride 104 mmol/L (96-108); Glomerular Filtration Rate 63; Glucose 139 mg/dL (70-105); Lactate Dehydrogenase 212 U/L (135-225); Phosphorous 3.2 mg/dL (2.5-4.5); Triglycerides 111 mg/dL (<150); Uric Acid 4.2 mg/dL (2.5-8.0)
[2024-01-05] MEDS: traMADol 50 MG TABLET PO PRN (07:11)
[2024-01-05] MEDS: ASPIRIN 81 MG TAB.CHEW CHEWED ONE (12:01)
[2024-01-05] MEDS: SUCRALFATE 1 GM/10 ML ORAL.SUSP PO ONE ×2 (12:11)
[2024-01-05] MEDS: DIGOXIN 125 MCG TABLET PO SCH (14:19)
[2024-01-06] MEDS: AMPICILLIN SODIUM 1 GM in 0.9 % SODIUM CHLORIDE 50 ML IV SCH (07:51)
[2024-01-06] MEDS: ASPIRIN 81 MG TAB.CHEW CHEWED SCH (08:04)
[2024-01-07] MEDS: APIXABAN 5 MG TABLET PO SCH (08:21)
[2024-01-07] MEDS: ASPIRIN 81 MG TAB.CHEW CHEWED SCH (08:21)
== END 2024-01-07 13:25 | disposition home or self-care (01) | DRG 690 ==
LOC: MEDSUR 19:13 → ED 19:13 → MEDSUR 01-04 03:03
PROVIDERS: ADMIT Internal Medicine; ATTEND Internal Medicine

== ENCOUNTER 2024-04-23 16:32 | Inpatient (IN) ==
[2024-04-23 17:10] LABS: POC Calcium, Ionized 1.21 (1.16-1.32); POC Creatinine 1.2 (0.6-1.2); POC Potassium 3.8 (3.3-5.1)
[2024-04-23] MEDS: ACETAMINOPHEN 1,000 MG/100 ML BAG IV ONE (17:26)
[2024-04-23] MEDS: 0.9 % SODIUM CHLORIDE 500 ML IV ONE ×2 (18:13→22:17)
[2024-04-23] MEDS: CEFEPIME 2 GM VIAL IV ONE (18:13)
[2024-04-23] MEDS: VANCOMYCIN 1,000 MG in 0.9 % SODIUM CHLORIDE 250 ML IV ONE (18:13)
[2024-04-23 21:03] LABS: ALT/SGPT < 5 U/L (0-40); AST/SGOT 15 U/L (<40); Albumin 3.8 gm/dL (3.2-5.2); Albumin/Globulin Ratio 1.2 (1.0-2.3); Alkaline Phosphatase 83 U/L (39-117); Bilirubin,Total 0.5 mg/dL (0.1-1.0); Blood Urea Nitrogen 16 mg/dL (8-23); Calcium 9.4 mg/dL (8.6-10.4); Carbon Dioxide 30 mmol/L (22-30); Chloride 101 mmol/L (96-108); Globulin 3.2 gm/dL (2.2-3.7); Glomerular Filtration Rate 71; Glucose 149 mg/dL (70-105); Potassium 3.7 mmol/L (3.3-5.1); Sodium 139 mmol/L (133-145)
[2024-04-23 21:09] LABS: Appearance,Urine Clear (Clear); Bacteria,Urine Few /hpf (0); Bilirubin,Urine Negative (Negative); Color,Urine Yellow; Culture Indicated,Urine Yes; Glucose,Urine (UA) Negative (Negative); Ketones,Urine Negative (Negative); Leukocyte Esterase,Urine 2+(Moderate) /uL (Negative); Nitrate,Urine Positive (Negative); PH,Urine 8.5 (5.0-9.0); Protein,Urine Trace mg/dL (Negative); Specific Gravity,Urine 1.015 (1.000-1.035); Urine Amorphous Crystals Many /hpf; Urine Blood 3+(Large) ery/mcL (Negative); Urine RBC 23 /hpf (0-3); Urine Squamous Epithelial Cell 0 /hpf (0-4); Urine WBC 8 /hpf (0-4); Urobilinogen,Urine Normal
[2024-04-23] MEDS ORDERED: DEXTROSE 31 GM ORAL.SUSP PO PRN (21:10)
[2024-04-23] MEDS ORDERED: METOPROLOL TARTRATE 5 MG/5 ML VIAL IV PRN (21:10)
[2024-04-23] MEDS ORDERED: POTASSIUM CHLORIDE 40 MEQ in DEXTROSE 5% IN WATER 500 ML IV PRN (21:10)
[2024-04-23] MEDS ORDERED: POTASSIUM CHLORIDE 20 MEQ TABLET PO PRN ×2 (21:10)
[2024-04-23] MEDS ORDERED: DEXTROSE 50% 50 ML VIAL IV PRN (21:10)
[2024-04-23] MEDS ORDERED: MAGNESIUM SULFATE 2 GM/50 ML BAG IV PRN (21:10)
[2024-04-23] MEDS ORDERED: VANCOMYCIN PER PHARMACY IV SCH (21:10)
[2024-04-23] MEDS ORDERED: SENNOSIDES 1 TABLET PO PRN (21:10)
[2024-04-23] MEDS ORDERED: ONDANSETRON 4 MG/2 ML VIAL IV PRN (21:10)
[2024-04-23] MEDS ORDERED: POLYETHYLENE GLYCOL 3350 17 GM PACKET PO PRN (21:10)
[2024-04-23] MEDS ORDERED: BACLOFEN 10 MG TABLET PO PRN (21:17)
[2024-04-23 21:50] LABS: Basophils # (Auto) 0.04 K/mcL (0.00-0.30); Basophils % (Auto) 0.3 % (0.0-2.0); Eosinophils # (Auto) 0.15 K/mcL (0.00-0.70); Hematocrit 40.3 % (40.1-51.0); Hemoglobin 12.8 g/dL (13.7-17.5); Lymphocytes # (Auto) 0.57 K/mcL (1.50-4.80); Lymphocytes % (Auto) 3.8 % (15.5-49.0); Mean Cell Volume 80.3 fL (80.0-100.0); Mean Corpuscular HGB Conc 31.8 g/dL (31.0-36.0); Monocytes # (Auto) 0.58 K/mcL (0.10-0.90); Monocytes % (Auto) 3.9 % (1.0-12.0); Neutrophils % (Auto) 90.8 % (38.0-78.0); Platelet Count 186 K/mcL (140-440); RBC 5.02 M/mcL (4.63-6.08)
[2024-04-23 22:15] LABS: Band Neutrophils % 3 % (0-10); Eosinophils % (Manual) 3 % (0-7); Hypochromasia 1+ (None Seen); Lymphocytes % 6 % (15-49); Microcytosis 1+ (None Seen); Monocytes % (Manual) 4 % (1-12); Platelet Estimate NORMAL (Normal); RBC Morphology ABNORMAL (Normal); Segmented Neutrophils % 84 % (38-78)
[2024-04-23] MEDS: metroNIDAZOLE 500 MG/100 ML BAG IV SCH (22:16)
[2024-04-23] MEDS: DOCUSATE SODIUM 100 MG CAPSULE PO SCH (22:30)
[2024-04-23] MEDS: APIXABAN 5 MG TABLET PO SCH (22:30)
[2024-04-23] MEDS: TAMSULOSIN 0.4 MG CAPSULE PO SCH (22:30)
[2024-04-23] MEDS: METOPROLOL TARTRATE 25 MG TABLET PO SCH (22:31)
[2024-04-23] MEDS: LACTULOSE 20 GM/30 ML ORAL.SOL PO SCH (22:31)
[2024-04-23] MEDS: INSULIN LISPRO 1 UNIT/0.01 ML UNIT SQ SCH (22:41)
[2024-04-24] MEDS: CEFEPIME 2 GM VIAL IV SCH (00:26)
[2024-04-24] MEDS: 0.9 % SODIUM CHLORIDE 10 ML SYRINGE IV SCH (05:51)
[2024-04-24 06:56] LABS: Basophils # (Auto) 0.06 K/mcL (0.00-0.30); Basophils % (Auto) 0.3 % (0.0-2.0); Eosinophils # (Auto) 0.51 K/mcL (0.00-0.70); Eosinophils % (Auto) 2.7 % (0.0-7.0); Hematocrit 34.7 % (40.1-51.0); Hemoglobin 10.8 g/dL (13.7-17.5); Lymphocytes # (Auto) 1.28 K/mcL (1.50-4.80); Lymphocytes % (Auto) 6.9 % (15.5-49.0); Mean Cell Volume 82.2 fL (80.0-100.0); Mean Corpuscular HGB Conc 31.1 g/dL (31.0-36.0); Mean Platelet Volume 10.7 fL (8.8-12.5); Monocytes % (Auto) 3.8 % (1.0-12.0); Neutrophils % (Auto) 85.8 % (38.0-78.0); Platelet Count 165 K/mcL (140-440); RBC 4.22 M/mcL (4.63-6.08); Red Cell Distribution Width 14.3 % (11.5-14.5); WBC 18.6 K/mcL (4.5-11.0)
[2024-04-24 07:06] LABS: AST/SGOT 13 U/L (<40); Albumin 3.3 gm/dL (3.2-5.2); Albumin/Globulin Ratio 1.3 (1.0-2.3); Alkaline Phosphatase 66 U/L (39-117); Bilirubin,Direct < 0.2 mg/dL (0-0.3); Bilirubin,Total 0.9 mg/dL (0.1-1.0); Blood Urea Nitrogen 19 mg/dL (8-23); Calcium 8.6 mg/dL (8.6-10.4); Carbon Dioxide 29 mmol/L (22-30); Chloride 105 mmol/L (96-108); Globulin 2.6 gm/dL (2.2-3.7); Glomerular Filtration Rate 80; Glucose 132 mg/dL (70-105); Lactate Dehydrogenase 136 U/L (135-225); Phosphorous 2.8 mg/dL (2.5-4.5); Potassium 4.1 mmol/L (3.3-5.1); Sodium 140 mmol/L (133-145); Triglycerides 93 mg/dL (<150); Uric Acid 5.4 mg/dL (2.5-8.0)
[2024-04-24] MEDS: PANTOPRAZOLE 40 MG TABLET PO SCH (08:20)
[2024-04-24] MEDS ORDERED: VANCOMYCIN PER PHARMACY IV SCH (09:51)
[2024-04-24] MEDS ORDERED: VANCOMYCIN 1,500 MG in 0.9 % SODIUM CHLORIDE 500 ML IV SCH ×2 (10:00→15:00)
[2024-04-24] MEDS: VANCOMYCIN 1,500 MG in 0.9 % SODIUM CHLORIDE 500 ML IV SCH (15:20)
[2024-04-24] MEDS: DIGOXIN 125 MCG TABLET PO SCH (17:12)
[2024-04-24] MEDS: ACETAMINOPHEN 325 MG TABLET PO PRN (17:23)
[2024-04-24] MEDS: ASPIRIN 81 MG TAB.CHEW PO SCH (20:09)
[2024-04-24] MEDS: INSULIN GLARGINE, HUMAN 1 UNIT/0.01 ML SQ SCH (20:10)
[2024-04-25 07:24] LABS: ALT/SGPT < 5 U/L (<40); AST/SGOT 12 U/L (<40); Albumin 3.3 gm/dL (3.2-5.2); Albumin/Globulin Ratio 1.2 (1.0-2.3); Alkaline Phosphatase 70 U/L (39-117); Bilirubin,Direct < 0.2 mg/dL (0-0.3); Bilirubin,Total 0.5 mg/dL (0.1-1.0); Blood Urea Nitrogen 17 mg/dL (8-23); C-Reactive Protein 9.14 mg/dL (0.03-0.80); Calcium 9.4 mg/dL (8.6-10.4); Carbon Dioxide 27 mmol/L (22-30); Chloride 106 mmol/L (96-108); Globulin 2.8 gm/dL (2.2-3.7); Glomerular Filtration Rate 84; Glucose 98 mg/dL (70-105); Lactate Dehydrogenase 134 U/L (135-225); Phosphorous 2.6 mg/dL (2.5-4.5); Potassium 3.9 mmol/L (3.3-5.1); Sodium 142 mmol/L (133-145); Triglycerides 65 mg/dL (<150); Uric Acid 5.3 mg/dL (2.5-8.0)
[2024-04-25 08:33] LABS: Basophils # (Auto) 0.07 K/mcL (0.00-0.30); Basophils % (Auto) 0.6 % (0.0-2.0); Eosinophils # (Auto) 0.64 K/mcL (0.00-0.70); Eosinophils % (Auto) 5.8 % (0.0-7.0); Hematocrit 35.2 % (40.1-51.0); Hemoglobin 10.9 g/dL (13.7-17.5); Lymphocytes # (Auto) 0.95 K/mcL (1.50-4.80); Lymphocytes % (Auto) 8.6 % (15.5-49.0); Mean Cell Volume 82.4 fL (80.0-100.0); Mean Platelet Volume 11.6 fL (8.8-12.5); Monocytes # (Auto) 0.57 K/mcL (0.10-0.90); Monocytes % (Auto) 5.2 % (1.0-12.0); Neutrophils % (Auto) 79.6 % (38.0-78.0); Platelet Count 174 K/mcL (140-440); RBC 4.27 M/mcL (4.63-6.08); Red Cell Distribution Width 14.5 % (11.5-14.5)
[2024-04-25] MEDS: IPRATROPIUM/ALBUTEROL 3 ML AMPUL.NEB NEB PRN (18:42)
[2024-04-25] MEDS: traMADol 50 MG TABLET PO PRN (20:06)
== END 2024-04-26 13:55 | disposition home or self-care (01) | DRG 871 ==
LOC: ED 16:32 → ICU 20:50 → MEDSUR 04-24 21:29
PROVIDERS: ADMIT Internal Medicine; ATTEND Internal Medicine